=== PATIENT | male | born 1985 | race Caucasian/White ===

== ENCOUNTER 2019-09-17 16:04 | Inpatient (IN) | payer MEDICAID ==
[~2019-09-17] VITALS: Ht 185.4 cm; Wt 200.3 kg
[2019-09-17 16:49] LABS: EOSINOPHILS 3.9 % (0-7); HEMATOCRIT 38.7 % (42.0-54.0); IMMATURE GRANULOCYTES 1.8 % (0-5); LYMPHOCYTES 24.2 % (15-50); MCV 93.5 fL (80.0-100.0); MEAN PLATELET VOLUME 10.4 fL (7.4-10.4); MONOCYTES 5.2 % (2-11); NEUTROPHILS 63.9 % (40-80); PLATELET COUNT 308 10x3/uL (130-400); RBC 4.14 10x6/uL (4.20-6.10); WBC 9.6 10x3/uL (4.8-10.8)
[2019-09-17 17:00] LABS: CALC OSMOLALITY 271 mosm/kg (275-300); CALCIUM 8.1 mg/dL (8.5-10.1); CARBON DIOXIDE 23.4 mmol/L (21.0-32.0); CHLORIDE - SERUM 104 mmol/L (98-107); CREATININE - SERUM 0.7 mg/dL (0.6-1.3); GLUCOSE 92 mg/dL (74-106); POTASSIUM - SERUM 3.5 mmol/L (3.5-5.1); SODIUM 138 mmol/L (136-145); UREA NITROGEN 2 mg/dL (7-18); eGFR NON AFRICAN AMERICAN > 90 mL/min (90-120)
[2019-09-17 17:07] LABS: ALBUMIN 1.9 g/dL (3.4-5.0); ALKALINE PHOSPHATASE 424 U/L (30-120); ALT (SGPT) 106 U/L (10-68); AMYLASE - SERUM 69 U/L (25-115); BILIRUBIN - TOTAL 15.16 mg/dL (0.2-1.3); LIPASE 272 U/L (73-393); PROTEIN - SERUM 5.3 g/dL (6.4-8.2); TROPONIN-I < 0.017 ng/mL (0.000-0.060)
[2019-09-17 17:52] LABS: APTT 29.8 SECONDS (22.8-39.4); INR 1.06 (0.85-1.17); PROTIME 13.7 SECONDS (11.6-15.0)
[2019-09-17 18:24] VITALS: BP 144/89
[2019-09-17 18:53] LABS: BILIRUBIN 3+ (NEGATIVE); GLUCOSE NEGATIVE (NEGATIVE); KETONE NEGATIVE (NEGATIVE); NITRITE NEGATIVE (NEGATIVE); UROBILINOGEN NORMAL (NORMAL)
[2019-09-17 18:55] LABS: BACTERIA MODERATE /hpf (NEGATIVE); RED CELLS - URINE 0-5 /hpf (0-5); WHITE CELLS - URINE 25-50 /hpf (NEGATIVE)
--- NOTE | 2019-09-17 19:50 | NUR ---
PT ARRIVED TO THE FLOOR. ALERT AND ORIENTED. NO SIGNS OF DISTRESS. BREATHING EVEN AND UNLABORED. IV SITE LT AC DRESSING CLEAN DRY AND INTACT. NO SIGNS OF INFECTION OR INFULTRATION. SKIN HAS A YELLOW TINT TO IT. SKIN CLEAN DRY AND INTACT. ABD DISTENDED. LOWER LEGS SWELLING PRESENT. WILL CONTINUE PLAN OF CARE. CALL LIGHT IN REACH. BED LOWERED AND LOCKED. BED RAILS UPX1.
[2019-09-17 20:00] VITALS: BP 126/82
[2019-09-18] VITALS: BP 131/71
[2019-09-18 01:37] VITALS: BMI 55.5
[2019-09-18 04:00] VITALS: BP 126/66
[2019-09-18 05:16] LABS: BASOPHILS 1.3 % (0-2); EOSINOPHILS 3.7 % (0-7); HEMATOCRIT 36.4 % (42.0-54.0); HEMOGLOBIN 11.1 g/dL (13.5-17.5); IMMATURE GRANULOCYTES 1.2 % (0-5); LYMPHOCYTES 19.6 % (15-50); MCH 28.7 pg (26.0-34.0); MCHC 30.5 g/dL (31.0-37.0); MCV 94.1 fL (80.0-100.0); MEAN PLATELET VOLUME 10.7 fL (7.4-10.4); MONOCYTES 6.8 % (2-11); NEUTROPHILS 67.4 % (40-80); PLATELET COUNT 309 10x3/uL (130-400); RBC 3.87 10x6/uL (4.20-6.10); RDW 23.6 % (11.5-14.5); WBC 10.8 10x3/uL (4.8-10.8)
[2019-09-18 05:45] LABS: ALBUMIN 1.8 g/dL (3.4-5.0); ALKALINE PHOSPHATASE 397 U/L (30-120); ALT (SGPT) 97 U/L (10-68); CALC OSMOLALITY 270 mosm/kg (275-300); CALCIUM 7.7 mg/dL (8.5-10.1); CARBON DIOXIDE 23.9 mmol/L (21.0-32.0); CHLORIDE - SERUM 104 mmol/L (98-107); CREATININE - SERUM 0.6 mg/dL (0.6-1.3); GLUCOSE 94 mg/dL (74-106); POTASSIUM - SERUM 3.8 mmol/L (3.5-5.1); PROTEIN - SERUM 4.9 g/dL (6.4-8.2); SODIUM 137 mmol/L (136-145); eGFR NON AFRICAN AMERICAN > 90 mL/min (90-120)
[2019-09-18 05:46] LABS: UREA NITROGEN 3 mg/dL (7-18)
--- NOTE | 2019-09-18 07:11 | HP ---
PATIENT: WALT DOMINIQUE MEDICAL RECORD: [id number] ACCOUNT: [id number] LOCATION:D.[id number] : [birth year] ADMISSION DATE: 09/17/19 PCP: No PCP HISTORY AND PHYSICAL EXAMINATION REASON FOR ADMISSION: Abdominal and leg swelling which is painful. HISTORY OF PRESENT ILLNESS: The patient is a 33-year-old male with no local medical doctor. He has a history of alcoholism and has been hospitalized multiple times at [facility], the last on September 01 for pancreatitis, alcoholic gastritis, and alcohol withdrawal. The patient states that he has had increasing edema in his ankles, feet and legs, which is hard for him to walk. His abdomen began to swell for the last week and so he came to this hospital to try some new physicians. He has had no fever, some vague abdominal pain. He states he used to drink a gallon or so of vodka a day, but was told in August to stop, so he is now drinking beer about 3 course a day. He has had a small amount of blood in the stool over the last 2 weeks. He has had no nausea, vomiting, hematemesis. He was seen by Dr. Rosenthal during his last hospitalization who recommended to take Protonix and Carafate. PAST MEDICAL HISTORY: Alcoholic hepatitis, alcoholic cirrhosis, history of delirium tremens, for which he was on ventilator for a week. Essential hypertension, morbid obesity weighing over 400 pounds, tobacco abuse still smoking, history of nontraumatic rhabdomyolysis, congestive heart failure with diastolic dysfunction by echo in April of this year showed an EF of 50% to 55%. TAVO. PAST SURGICAL HISTORY: [place] teeth have been removed. FAMILY HISTORY: His father in assisted of unknown cause. Mother of breast cancer. SOCIAL HISTORY: He is living in [place] and moved here to follow a woman, which did not work out, he states. He has worked for [employer] most recently. Smokes 1 pack a day for 25 years. Drinks of 2 course of beer a day. Has used pot in the past none since 2016. REVIEW OF SYSTEMS: GENERAL: He has been fatigued for some time. No fever. HEENT: No recent visual change, sinus congestion, sore throat, or hearing difficulty. RESPIRATORY: Mild shortness of breath if he exerts himself, but he does very little. Denies hemoptysis. CARDIAC: No chest pain. He has had marked edema of the lower extremities over the last several weeks making it difficult for him to walk. History of hypertension. No history of heart disease. GASTROINTESTINAL: He has had nausea with no active vomiting, had some vague epigastric abdominal pain. He has had a few stools with some blood on his toilet tissue, but no bernardo hematochezia or melena. GENITOURINARY: Denies dysuria. MUSCULOSKELETAL: Chronic lumbago and hip discomfort. INTEGUMENT: Skin is little more yellow recently. No itching. PSYCHIATRIC: Denies depressed mood, suicidal thoughts, history of seizures. NEUROLOGIC: Denies numbness, history of stroke and seizures. He states he has had DTs in the past. No recent tremors. HISTORY AND PHYSICAL [id number] WALT DOMINIQUE PHYSICAL EXAMINATION: VITAL SIGNS: Weight exceed 400 pounds. His pulse is 115 and regular, temperature is 98.8, respirations 18, blood pressure 136/95. GENERAL: The patient is alert and oriented. Eyes show scleral icterus bilaterally. Vision is intact. Oropharynx unremarkable. NECK: Supple. CHEST: Distant breath sounds without wheeze or rales. HEART: Tachycardic without murmur. ABDOMEN: Morbidly obese, minimally tender in the epigastrium. No rebound. Ascitic wave is noted. A small umbilical hernia noted as well. GENITOURINARY: Shows some scrotal edema. EXTREMITIES: A 4+ bilateral lower extremity edema from the knees to the feet. No skin ulcers are noted. No erythema. NEUROLOGIC: Oriented to person, place, and time. Cranial nerves grossly intact. Gait was not tested. PSYCHIATRIC: Denies depressed mood or suicidal ideology. LABORATORY DATA: White count is 9600 with H and H of 12 and 38.7, and platelet count of 308,000. Potassium 3.5, sodium 138, BUN and creatinine are normal with a normal GFR. Bilirubin was 15.16 at [facility] a month ago it was 9.4. SGOT and SGPT 151/106 respectively. Alkaline phosphatase of 424, albumin low at 1.9. Amylase and lipase are normal. IMAGING: CT scan is pending at this time. ASSESSMENT: 1. Kjsxv-vw-jkqkvir alcoholic cirrhosis. 2. Ascites. 3. Active alcoholism. 4. Active tobacco abuse, hepatic steatosis, morbid obesity, hypertension, TAVO, and umbilical hernia. PLAN: The patient will be admitted with GI consultation for DT prophylaxis. The patient did have a normal PIPIDA scan at [facility] in 08/2019 that showed no dilated ducts. We will monitor for DTs. TRANSINT:[id number] Voice Confirmation ID: [id number] DOCUMENT ID: [id number] EDLANEY FAIRBANKS MD at 0711 CC: [id number] DICTATION DATE: 09/17/191854 CHARGEMASTER SPECIALIST: 09/17/19 223 ADM IN [place] [id number] [place] [address]
--- NOTE | 2019-09-18 07:48 | NUR ---
RECIEVED PT FROM ASSEMBLER MOVEMENT. PT IN BED WITH EYES CLOSED UPON ENTERING, BREATHING UNEVEN AND APPEARS LABORED, REPORTED THAT THIS PATIENT BASELINE WHEN SLEEPING. EASILY AROUSES TO VOICE. ROOM AIR, LEFT AC SL, ELECTROLYTE PROTOCOL, STRICT I&O, DAILY #. ALERT AND ORIENTED X4, UP ADLIB DENIES ANY NEEDS. BED IN LOWEST POSITION, BED RAILS X2, CALL LIGHT WITHIN REACH. WILL CONTINUE TO MONITOR.
[2019-09-18 08:38] VITALS: BP 141/89
--- NOTE | 2019-09-18 08:51 | NUR ---
PT UPRIGHT IN BEDSIDE CHAIR EATING BREAKFAST. ADMINISTERED MORNING MEDICATION AT THIS TIME, NO DIFFICULTIES. DENIES ANY NEEDS. WILL CONTINUE TO MONITOR.
--- NOTE | 2019-09-18 11:05 | NUR ---
ADMINISTERED PRN ATIVAN PER PT REQUEST, TOLERATED WELL. IN BEDSIDE CHAIR. DENIES ANY NEEDS. PROVIDED PT WITH URINE COLLECTION CUP. WILL CONTINUE TO MONITOR.
[2019-09-18 12:41] VITALS: BP 148/91
[2019-09-18 14:13] VITALS: Ht 185.4 cm; Wt 200.3 kg
--- NOTE | 2019-09-18 15:07 | NUR ---
ADMINISTERED MEDICATION. PROVIDED DRINK PER REQUEST. IN BED SIDE. DENIES ANY OTHER NEEDS. WILL CONTINUE TO MONITOR.
[2019-09-18 17:00] VITALS: BP 134/82
--- NOTE | 2019-09-18 19:08 | NUR ---
I have reviewed this patient and I concur with the Shift Assessment completed by the Licensed Practical Nurse today this shift.
--- NOTE | 2019-09-18 19:50 | NUR ---
ADMINISTERED MEDICATION, NO DIFFICULTIES. PT IS UPRIGHT IN BED SIDE CHAIR. DENIES ANY NEEDS. WILL CONTINUE TO MONITOR.
[2019-09-18 20:00] VITALS: BP 148/92
--- NOTE | 2019-09-19 01:17 | NUR ---
PT RESTING IN BED. EYES CLOSED. NO SIGNS OF DISTRESS. BREATHING EVEN AND UNLABORED. IV SITE LT AC DRESSING CLEAN DRY AND INTACT. NO SIGNS OF INFECTION OR INFULTRATION. SKIN YELLOW IN COLOR. ABD DISTENDED. LEGS SWELLING PRESENT. WILL CONTINUE PLAN OF CARE. CALL LIGHT IN REACH. BED LOWERED AND LOCKED.
[2019-09-19 04:00] VITALS: BP 143/87
--- NOTE | 2019-09-19 04:41 | NUR ---
I have reviewed this patient and I concur with the Shift Assessment completed by the Licensed Practical Nurse today this shift.
--- NOTE | 2019-09-19 07:10 | NUR ---
A&O SITTING UP IN CHAIR. NO C/O PAIN. NO S/S OF ACUTE DISTRESS NOTED. IV TO LEFT AC, SL. SITE PATENT WITHOUT REDNESS OR SWELLING. GENERALIZED EDEMA TO BLE. URINE CONCENTRATED, STRICT I&O. ABDOMEN DISTENDED. DENIES ANY NEEDS AT THIS TIME. CALL LIGHT IN REACH. WILL CONTINUE TO MONITOR.
[2019-09-19 07:14] LABS: ALBUMIN 1.9 g/dL (3.4-5.0); ALKALINE PHOSPHATASE 426 U/L (30-120); ALT (SGPT) 96 U/L (10-68); BILIRUBIN - TOTAL 16.46 mg/dL (0.2-1.3); CARBON DIOXIDE 24.2 mmol/L (21.0-32.0); CHLORIDE - SERUM 102 mmol/L (98-107); CREATININE - SERUM 0.7 mg/dL (0.6-1.3); GLUCOSE 107 mg/dL (74-106); POTASSIUM - SERUM 3.5 mmol/L (3.5-5.1); PROTEIN - SERUM 5.4 g/dL (6.4-8.2); SODIUM 136 mmol/L (136-145); eGFR NON AFRICAN AMERICAN > 90 mL/min (90-120)
[2019-09-19 07:26] LABS: CALC OSMOLALITY 268 mosm/kg (275-300); CALCIUM 7.9 mg/dL (8.5-10.1); UREA NITROGEN 5 mg/dL (7-18)
--- NOTE | 2019-09-19 07:46 | NUR ---
UP IN CHAIR,WITHOUT DISTRESS.
[2019-09-19 08:00] VITALS: BP 154/79
[2019-09-19 08:13] LABS: HEPATITIS C ANTIBODY 0.3 S/CO RAT (0.0-0.9)
[2019-09-19 09:59] LABS: BASOPHILS 1.5 % (0-2); HEMATOCRIT 37.5 % (42.0-54.0); HEMOGLOBIN 11.5 g/dL (13.5-17.5); IMMATURE GRANULOCYTES 2.4 % (0-5); LYMPHOCYTES 19.2 % (15-50); MCH 28.8 pg (26.0-34.0); MCHC 30.7 g/dL (31.0-37.0); MEAN PLATELET VOLUME 10.5 fL (7.4-10.4); MONOCYTES 4.9 % (2-11); PLATELET COUNT 279 10x3/uL (130-400); RBC 3.99 10x6/uL (4.20-6.10); RDW 23.5 % (11.5-14.5); WBC 9.3 10x3/uL (4.8-10.8)
[2019-09-19 12:00] VITALS: BP 145/85
--- NOTE | 2019-09-19 12:33 | MORECARE ---
CASE MANAGEMENT DISCHARGE SUMMARY PATIENT: WALT DOMINIQUE UNIT: [id number] ADM DATE: 09/17/19 AGE: 33 : 85 SEX: M ROOM/BED: D.2235 AUTHOR: CURT MALIK PHYSICIAN: REFERRING PHYSICIAN: DELANEY FAIRBANKS MD DATE OF SERVICE: 09/19/19 Discharge Plan Patient Name: WALT DOMINIQUE [facility] [facility] 1985 Planned Disposition: Inpatient Rehab Anticipated Discharge Date: Discharge Date: Expected LOS: Initial Reviewer: [email or web address] Initial Review Date: 09/19/2019 Generated: 09/19/19 1:32 pm Patient Name: WALT DOMINIQUE Page [id number] at 1233 All edits/amendments must be made on the electronic document DICTATION DATE: 09/19/19 1233 ACCOUNT DEVELOPMENT ASSOCIATE: DENY 09/19/19 1233 RPT#: [id number] DC DATE: STATUS: ADM IN [facility] [address] [place] [address] END OF REPORT
--- NOTE | 2019-09-19 12:43 | MORECARE ---
CASE MANAGEMENT DISCHARGE SUMMARY PATIENT: WALT DOMINIQUE UNIT: [id number] ADM DATE: 09/17/19 AGE: 33 : 85 SEX: M ROOM/BED: D.2235 AUTHOR: CURT MALIK PHYSICIAN: REFERRING PHYSICIAN: DELANEY FAIRBANKS MD DATE OF SERVICE: 09/19/19 Discharge Plan Patient Name: WALT DOMINIQUE Facility: [facility]:[place] : 1985 Planned Disposition: Inpatient Rehab Anticipated Discharge Date: Discharge Date: Expected LOS: Initial Reviewer: [email or web address] Initial Review Date: 09/19/2019 Generated: 09/19/19 1:42 pm Comments DCP- Discharge Planning Updated by [email or web address]: Hellen Molina on 09/19/19 11:[address] Patient Name: WALT DOMINIQUE Admission Status: ER Accout number: [id number] Admission Date: 09-17-2019 : 1985 Admission Diagnosis: Attending: DELANEY FAIRBANKS Current LOS: 2 Anticipated DC Date: Planned Disposition: Inpatient Rehab Primary Insurance: [place] PR[employer]IONS YARITZA Discharge Planning Comments: CM met with patient at bedside after explaining CM role and obtaining verbal consent. CM discussed availability / needs of home health, REHAB and medical equipment. HE WOULD LIKE TO GO TO [facility] AT [facility], DEENA SIGNED AND I AM FAXING REFERRAL SO THEY CAN GET STARTED ON THE INSURANCE AUTH. I WILL FOLLOW AND ASSIST NEEDED. Human Resources Team Member: Hellen Molina External Providers External Provider: [facility] Next Contact Date: Service Request Date: Service Type: Resolution: Reviewer: Comments: Coverage Notice Reviewer: [id number] - Hellen Molina Notice Issued Date-Time: 09/19/2019 12:35 Notice Type: Patient Choice Letter Notice Delivered To: Relationship to Patient: Gunner'S Mate Name: Delivery Method: HAND - Hand Delivered Peggy Days: Prior Verbal Notification: Recipient Understood Notice: Yes Recipient Signature: Yes Med Rec Note Co-signed by Attending: Coverage Notice Comment: [facility] Last DP export: 09/19/19 11:33 am Patient Name: WALT DOMINIQUE Page 14201 at 1243 All edits/amendments must be made on the electronic document DICTATION DATE: 09/19/191241 PROJECT MANAGER INTERIOR DESIGN: DENY 09/19/19 1242 RPT#: [id number] DC DATE: STATUS: ADM IN [facility] [address] [place] [address] END OF REPORT
--- NOTE | 2019-09-19 15:07 | NUR ---
OT NOTE: PT COMPLETED BUE AROM EXS. PT COMPLETED FACE HYGIENE WITH SETUP. [phone] THANK YOU,JASON RIZO
[2019-09-19 16:00] VITALS: BP 134/83
--- NOTE | 2019-09-19 18:06 | NUR ---
ALERT AND ORIENTED, SITTING UP IN CHAIR. NO C/O PAIN. NO S/S OF ACUTE DISTRESS NOTED. DENIES ANY NEEDS AT THIS TIME. CALL LIGHT IN REACH. WILL CONTINUE TO MONITOR.
[2019-09-19 20:00] VITALS: BP 149/91
--- NOTE | 2019-09-19 20:00 | NUR ---
PATIENT SITTING UP IN CHAIR. NO S/S OF ACUTE DISTRESS. NO C/O AT THIS TIME. PATIENT HAS LEFT AC, BANANA BAG @ 125 ML/HR. IV IS PATENT WITHOUT REDNESS, SWELLING, OR TENDERNESS. PATIENT HAS YELLOW SCLERA, AND IS JUANDICED ALL OVER. PATIENT HAS GENERALIZED EDEMA THAT IS ESPECIALLY BAD ON HIS FEET. PATIENT'S URNINE IS ORANGE AND CONCENTRATED, IT STAINS THE URINALS. CALL LIGHT WITHIN REACH. WILL CONTINUE TO MONITOR.
[2019-09-20 04:00] VITALS: BP 136/77
[2019-09-20 06:05] LABS: ALBUMIN 1.7 g/dL (3.4-5.0); ALKALINE PHOSPHATASE 388 U/L (30-120); ALT (SGPT) 80 U/L (10-68); BILIRUBIN - TOTAL 15.91 mg/dL (0.2-1.3); CALC OSMOLALITY 272 mosm/kg (275-300); CALCIUM 8.3 mg/dL (8.5-10.1); CARBON DIOXIDE 26.8 mmol/L (21.0-32.0); CHLORIDE - SERUM 102 mmol/L (98-107); CREATININE - SERUM 0.8 mg/dL (0.6-1.3); GLUCOSE 96 mg/dL (74-106); PROTEIN - SERUM 5.6 g/dL (6.4-8.2); SODIUM 138 mmol/L (136-145); UREA NITROGEN 5 mg/dL (7-18); eGFR NON AFRICAN AMERICAN > 90 mL/min (90-120)
[2019-09-20 06:06] LABS: INR 0.99 (0.85-1.17)
--- NOTE | 2019-09-20 07:33 | NUR ---
PT O N CL, REQUESTED ATIVAN, WILL ADMINISTER THIS MORNING WITH PT MORNING MEDS, CONTINUE WITH PLAN OF CARE
[2019-09-20 08:00] VITALS: BP 142/84
[2019-09-20 12:00] VITALS: BP 145/84
--- NOTE | 2019-09-20 13:04 | NUR ---
I have reviewed this patient and I concur with the Shift Assessment completed by the Licensed Practical Nurse today this shift.
--- NOTE | 2019-09-20 13:13 | MORECARE ---
CASE MANAGEMENT DISCHARGE SUMMARY PATIENT: WALT DOMINIQUE UNIT: [id number] ADM DATE: 09/17/19 AGE: 33 : 85 SEX: M ROOM/BED: D.2235 AUTHOR: CURT MALIK PHYSICIAN: REFERRING PHYSICIAN: DELANEY FAIRBANKS MD DATE OF SERVICE: 09/20/19 Discharge Plan Patient Name: WALT DOMINIQUE Facility: [facility]:[place] : 1985 Planned Disposition: Inpatient Rehab Anticipated Discharge Date: Discharge Date: Expected LOS: Initial Reviewer: [id number] Initial Review Date: 09/19/2019 Generated: 09/20/19 2:12 pm Comments DCP- Discharge Planning Updated by [email or web address]: Selena Vaughn on 09/20/19 12:[address] NIKKI FROM [facility] STATED THAT THE [facility] DOES NOT HAVE AN APPROVED DX FOR HIS INSURANCE DCP- Discharge Planning Updated by [email or web address]: Hellen Molina on 09/19/19 11:[address] Patient Name: WALT DOMINIQUE Admission Status: ER Accout number: [id number] Admission Date: 09-17-2019 : 1985 Admission Diagnosis: Attending: DELANEY FAIRBANKS Current LOS: 2 Anticipated DC Date: Planned Disposition: Inpatient Rehab Primary Insurance: [place] PR[employer]IONS YARIT[place] Discharge Planning Comments: CM met with patient at bedside after explaining CM role and obtaining verbal consent. CM discussed availability / needs of home health, REHAB and medical equipment. HE WOULD LIKE TO GO TO [facility] AT [facility], DEENA SIGNED AND I AM FAXING REFERRAL SO THEY CAN GET STARTED ON THE INSURANCE AUTH. I WILL FOLLOW AND ASSIST NEEDED. Local [place] Truck Driver: Hellen Molina Coverage Notice Reviewer: [id number] - Hellen Molina Notice Issued Date-Time: 09/19/2019 12:35 Notice Type: Patient Choice Letter Notice Delivered To: Relationship to Patient: Er Rn Name: Delivery Method: HAND - Hand Delivered Peggy Days: Prior Verbal Notification: Recipient Understood Notice: Yes Recipient Signature: Yes Med Rec Note Co-signed by Attending: Coverage Notice Comment: [facility] Last DP export: 09/19/19 11:43 am Patient Name: WALT DOMINIQUE Page 02644 at 1313 All edits/amendments must be made on the electronic document DICTATION DATE: 09/20/191312 MFG ASSOC: DENY 09/20/191312 RPT#: [id number] DC DATE: STATUS: ADM IN [facility] [address] [place] [address] END OF REPORT
--- NOTE | 2019-09-20 14:48 | NUR ---
OT NOTE: PT COMPLETED ADL MOB WITH NO ASSISTIVE DEVICE WITH SBA. PT COMPLETED SITTING BALANCE WITH MOD I. PT COMPLETED HYGIENE TASKS AT SINK LEVEL WHILE STANDING WITH SBA. [phone] THANK YOU,JASON RIZO
[2019-09-20 16:00] VITALS: BP 143/84
--- NOTE | 2019-09-20 17:23 | MORECARE ---
CASE MANAGEMENT DISCHARGE SUMMARY PATIENT: WALT DOMINIQUE UNIT: [id number] ADM DATE: 09/17/19 AGE: 33 : 85 SEX: M ROOM/BED: D.2235 AUTHOR: HELENADOC PHYSICIAN: REFERRING PHYSICIAN: DELANEY FAIRBANKS MD DATE OF SERVICE: 09/20/19 Discharge Plan Patient Name: WALT DOMINIQUE [facility] [facility] 1985 Planned Disposition: Inpatient Rehab Anticipated Discharge Date: Discharge Date: Expected LOS: Initial Reviewer: [email or web address] Initial Review Date: 09/19/2019 Generated: 09/20/19 6:23 pm Comments DCP- Discharge Planning Updated by [email or web address]: Selena Vaughn on 09/20/19 4:[address] SPOKE WITH PATIENT ABOUT NOT GETTING ACCEPTED TO INPATIENT REHAB, HE WOULD LIKE TO TRY TO GET INTO A PHYSICAL THERAPY REHAB ( SKILLED) HE DID MENTION THAT HE HAS AN AUNT SAVANNAH MONTGOMERY & UNCLE JING PEPPER WHO LIVE IN [place] [phone] HE HAS NOT SPOKEN WITH THEM IN 10 YEARS & DID NOT WANT ME TO CALL THEM. HE WOULD LIKE TO WAIT AND SEE IF WE CAN GET HIM INTO A SKILLED HE WOULD LIKE TO STAY LOCL IF POSSIBLE DCP- Discharge Planning Updated by [email or web address]: Selena Vaughn on 09/20/19 12:[address] NIKKI FROM [facility] RE[facility] STATED THAT THE [facility] DOES NOT HAVE AN APPROVED DX FOR HIS INSURANCE DCP- Discharge Planning Updated by [id number]: Hellen Tracy on 09/19/19 11:[address] Patient Name: WALT DOMINIQUE Admission Status: ER Accout number: [id number] Admission Date: 09-17-2019 : 1985 Admission Diagnosis: Attending: DELANEY FAIRBANKS Current LOS: 2 Anticipated DC Date: Planned Disposition: Inpatient Rehab Primary Insurance: [place] [employer] [place]AR[place] Discharge Planning Comments: CM met with patient at bedside after explaining CM role and obtaining verbal consent. CM discussed availability / needs of home health, REHAB and medical equipment. HE WOULD LIKE TO GO TO [facility] AT [facility], DEENA SIGNED AND I AM FAXING REFERRAL SO THEY CAN GET STARTED ON THE INSURANCE AUTH. I WILL FOLLOW AND ASSIST NEEDED. Echocardiography Tech: Hellen Molina Coverage Notice Reviewer: [id number] - Hellen Molina Notice Issued Date-Time: 09/19/2019 12:35 Notice Type: Patient Choice Letter Notice Delivered To: Relationship to Patient: Corporate Technical Recruiter Name: Delivery Method: HAND - Hand Delivered Peggy Days: Prior Verbal Notification: Recipient Understood Notice: Yes Recipient Signature: Yes Med Rec Note Co-signed by Attending: Coverage Notice Comment: [facility] Last DP export: 09/20/19 12:13 p Patient Name: WALT DOMINIQUE Page 44375 at 1723 All edits/amendments must be made on the electronic document DICTATION DATE: 09/20/191722 TEA BLENDER: DENY 09/20/191722 RPT#: [id number] DC DATE: STATUS: ADM IN [facility] [address] [place] [address] END OF REPORT
[2019-09-20 20:00] VITALS: BP 120/65
--- NOTE | 2019-09-20 20:00 | NUR ---
PATIENT SITTING IN CHAIR WATCHING TV. NO S/S OF ACUTE DISTRESS. NO C/O AT THIS TIME. PATIENT HAS IV IN LEFT AC, BANANA BAG @ 125 ML/HR THEN SALINE LOC. IV IS PATENT WITHOUT REDNESS, SWELLING, OR TENDERNESS. PATIENT IS JAUNDICED AND HAS YELLOW SCLERA. PATEINT HAS BLE EDEMA. PATIENT IS UP AD CINDY. CALL LIGHT WITHIN REACH. WILL CONTINUE TO MONITOR.
--- NOTE | 2019-09-21 02:13 | NUR ---
I have reviewed this patient and I concur with the Shift Assessment completed by the Licensed Practical Nurse today this shift.
[2019-09-21 06:59] LABS: CALCIUM 8.5 mg/dL (8.5-10.1); CARBON DIOXIDE 29.6 mmol/L (21.0-32.0); CHLORIDE - SERUM 103 mmol/L (98-107); CREATININE - SERUM 0.8 mg/dL (0.6-1.3); GLUCOSE 94 mg/dL (74-106); SODIUM 137 mmol/L (136-145); eGFR NON AFRICAN AMERICAN > 90 mL/min (90-120)
[2019-09-21 07:04] LABS: CALC OSMOLALITY 271 mosm/kg (275-300); POTASSIUM - SERUM 3.6 mmol/L (3.5-5.1); UREA NITROGEN 8 mg/dL (7-18)
[2019-09-21 08:51] VITALS: BP 120/72
--- NOTE | 2019-09-21 10:03 | NUR ---
PAITENT ALERT AND ORIENTED. SITTING IN CHAIR. RESPIRATIONS EVEN NON LABORED. NO SIGNS OF DISTRESS NOTED. SKIN IS JAUNDICE, SLERA YELLOW. URINE COFFEE COLORED. EDEMA ON BOTH LOWER EXTREMITIES. RIGHT ARM SALINE LOCK. UP AD CINDY. DENIES FURTHER NEEDS. SIDE RAILS UP. CALL LIGHT IN REACH. WILL CONTINUE TO MONITOR FOR SAFETY.
[2019-09-21 14:02] VITALS: BP 133/76
--- NOTE | 2019-09-21 17:24 | NUR ---
PATIENT ALERT AND ORIENTED. SITTING IN CHAIR WATCHING TV. RESPIRATIONS EVEN NON LABORED. NO SIGNS OF DISTRESS NOTED. STATES STOOL "STILL SNOW COLORED." DENIES FURTHER NEEDS. SIDE RAILS UP. CALL LIGHT IN REACH. WILL CONTINUE TO MONITOR FOR SAFETY.
[2019-09-21 18:21] VITALS: BP 171/88
--- NOTE | 2019-09-21 18:40 | NUR ---
PATIENT ALERT AND ORIENTED. SITTING IN CHAIR RESTING QUIETLY. RESPIRATIONS EVEN NONLABORED. NO SIGNS OF DISTRESS NOTED. DENIES FURTHER NEEDS. SIDE RAILS UP. CALL LIGHT IN REACH. WILL CONTINUE TO MONITOR FOR SAFETY.
[2019-09-21 20:00] VITALS: BP 147/79
--- NOTE | 2019-09-21 20:00 | NUR ---
PATIENT WATCHING TV IN CHAIR. NO S/S OF ACUTE DISTRESS. NO C/O AT THIS TIME. PATIENT HAS LEFT AC IV, BANANA BAG @ 125 ML/HR. IV IS PATENT WITHOUT REDNESS, SWELLING, OR TENDERNESS. PATIENT HAS YELLOW SCLERA AND IS JAUNDICED. PATIENT'S STOMACH IS DISTENDED AND TENDER. PATIENT HAS BLE EDEMA. PATIENT HAS HAD SNOW STOOLS. PATIENT IS UP ADLIB. CALL LIGHT WITHIN REACH. WILL CONTINUE TO MONITOR.
--- NOTE | 2019-09-22 03:00 | NUR ---
I have reviewed this patient and I concur with the Shift Assessment completed by the Licensed Practical Nurse today this shift.
[2019-09-22 04:00] VITALS: BP 104/51
[2019-09-22 07:47] LABS: HEMATOCRIT 37.8 % (42.0-54.0); HEMOGLOBIN 11.6 g/dL (13.5-17.5); LYMPHOCYTES 19.9 % (15-50); MCH 29.5 pg (26.0-34.0); MCHC 30.7 g/dL (31.0-37.0); MCV 96.2 fL (80.0-100.0); MEAN PLATELET VOLUME 10.7 fL (7.4-10.4); NEUTROPHILS 69.8 % (40-80); RBC 3.93 10x6/uL (4.20-6.10); RDW 23.7 % (11.5-14.5); WBC 11.1 10x3/uL (4.8-10.8)
[2019-09-22 07:48] LABS: PLATELET COUNT 214 10x3/uL (130-400)
[2019-09-22 08:08] LABS: ALBUMIN 1.7 g/dL (3.4-5.0); ALKALINE PHOSPHATASE 350 U/L (30-120); ALT (SGPT) 73 U/L (10-68); BILIRUBIN - TOTAL 17.38 mg/dL (0.2-1.3); CALC OSMOLALITY 268 mosm/kg (275-300); CALCIUM 8.3 mg/dL (8.5-10.1); CARBON DIOXIDE 27.2 mmol/L (21.0-32.0); CHLORIDE - SERUM 100 mmol/L (98-107); CREATININE - SERUM 0.8 mg/dL (0.6-1.3); GLUCOSE 93 mg/dL (74-106); POTASSIUM - SERUM 3.2 mmol/L (3.5-5.1); PROTEIN - SERUM 5.6 g/dL (6.4-8.2); SODIUM 135 mmol/L (136-145); UREA NITROGEN 9 mg/dL (7-18); eGFR NON AFRICAN AMERICAN > 90 mL/min (90-120)
[2019-09-22 09:24] VITALS: BP 138/88
--- NOTE | 2019-09-22 11:11 | NUR ---
PATIENT ALERT AND ORIENTED. SITTING IN CHAIR RESTING QUIETLY. WATCHING TV. RESPIRATIONS EVEN NONLABORED. NO SIGNS OF DISTRESS NOTED. JAUNDICE. YELLOW SCLERA. URINE IS DARK ORANGE FOUL ODOR. EDEMA ON BOTH LOWER EXTREMETIES. ON ROOM AIR. UP ADLIB. AM MEDS TOLERATED WELL. DENIES FUTHER NEEDS. SIDE RAILS UP. CALL LIGHT IN REACH. WILL CONTINUE TO MONITOR FOR SAFETY.
[2019-09-22 12:54] VITALS: BP 160/86
--- NOTE | 2019-09-22 16:31 | NUR ---
I have reviewed this patient and I concur with the Shift Assessment completed by the Licensed Practical Nurse today this shift.
[2019-09-22 17:53] VITALS: BP 146/86
--- NOTE | 2019-09-22 18:21 | NUR ---
PATIENT ALERT AND ORIENTED. SITTING IN CHAIR WATCHING TV. RESPIRATIONS EVEN NON LABORED. NO SIGNS OF DISTRESS NOTED. DENIES FURTHER NEEDS. SIDE RAILS UP. CALL LIGHT IN REACH. WILL CONTINUE TO MONITOR FOR SAFETY.
[2019-09-22 20:00] VITALS: BP 128/77
--- NOTE | 2019-09-22 20:00 | NUR ---
ALERT SITTING UP IN CHAIR, SEE SHIFT ASSESSEMNT, CALL LIGHT IN REACH DENIES NEEDS AT THIS TIME
[2019-09-23 04:11] VITALS: BP 129/71
[2019-09-23 09:08] VITALS: BP 135/85
--- NOTE | 2019-09-23 09:33 | NUR ---
PT SITTING UP IN CHAIR AT BEDSIDE, ADMINISTERED PRN MEDICATIONS WITH MORNING MEDS, PT DAILY WEIGHT ON BEDSCALE IS 448.6. ELEVATED PT LEGS IN CHAIR NO OTHER NEEDS AT THIS TIME. CONTINUE WITH PLAN OF CARE
--- NOTE | 2019-09-23 11:03 | MORECARE ---
CASE MANAGEMENT DISCHARGE SUMMARY PATIENT: WALT DOMINIQUE UNIT: [id number] ADM DATE: 09/17/19 AGE: 33 : 85 SEX: M ROOM/BED: D.2235 AUTHOR: HELENADOC PHYSICIAN: REFERRING PHYSICIAN: DELANEY FAIRBANKS MD DATE OF SERVICE: 09/23/19 Discharge Plan Patient Name: WALT DOMINIQUE [facility] [facility] 1985 Planned Disposition: Inpatient Rehab Anticipated Discharge Date: Discharge Date: Expected LOS: Initial Reviewer: [email or web address] Initial Review Date: 09/19/2019 Generated: 09/23/19 12:03 pm Comments DCP- Discharge Planning Updated by [id number]: Selena Vaughn on 09/20/19 4:[address] SPOKE WITH PATIENT ABOUT NOT GETTING ACCEPTED TO INPATIENT REHAB, HE WOULD LIKE TO TRY TO GET INTO A PHYSICAL THERAPY REHAB ( SKILLED) HE DID MENTION THAT HE HAS AN AUNT SAVANNAH MONTGOMERY & UNCLE JING PEPPER WHO LIVE IN [facility] [phone] HE HAS NOT SPOKEN WITH THEM IN 10 YEARS & DID NOT WANT ME TO CALL THEM. HE WOULD LIKE TO WAIT AND SEE IF WE CAN GET HIM INTO A SKILLED HE WOULD LIKE TO STAY LOCL IF POSSIBLE DCP- Discharge Planning Updated by [email or web address]: Selena Vaughn on 09/20/19 12:[address] NIKKI FROM [facility] RE[facility] STATED THAT THE [facility] DOES NOT HAVE AN APPROVED DX FOR HIS INSURANCE DCP- Discharge Planning Updated by [email or web address]: Hellen Tracy on 09/19/19 11:[address] Patient Name: WALT DOMINIQUE Admission Status: ER Accout number: [id number] Admission Date: 09-17-2019 : 1985 Admission Diagnosis: Attending: DELANEY FAIRBANKS Current LOS: 2 Anticipated DC Date: Planned Disposition: Inpatient Rehab Primary Insurance: [place] [employer]IONS YARITZA Discharge Planning Comments: CM met with patient at bedside after explaining CM role and obtaining verbal consent. CM discussed availability / needs of home health, REHAB and medical equipment. HE WOULD LIKE TO GO TO [facility] AT [facility], DEENA SIGNED AND I AM FAXING REFERRAL SO THEY CAN GET STARTED ON THE INSURANCE AUTH. I WILL FOLLOW AND ASSIST NEEDED. Career Placement Services Counselor: Hellen Molina Coverage Notice Reviewer: [id number] - Hellen Molina Notice Issued Date-Time: 09/19/2019 12:35 Notice Type: Patient Choice Letter Notice Delivered To: Relationship to Patient: Physician Assistant Name: Delivery Method: HAND - Hand Delivered Peggy Days: Prior Verbal Notification: Recipient Understood Notice: Yes Recipient Signature: Yes Med Rec Note Co-signed by Attending: Coverage Notice Comment: [facility] Last DP export: 09/20/19 4:23 p Patient Name: WALT DOMINIQUE Page [id number] at 1103 All edits/amendments must be made on the electronic document DICTATION DATE: 09/23/191102 MEDIA ASSOCIATE: DENY 09/23/19 1103 RPT#: [id number] DC DATE: STATUS: ADM IN [facility] [address] [place] [address] END OF REPORT
--- NOTE | 2019-09-23 11:33 | NUR ---
I have reviewed this patient and I concur with the Shift Assessment completed by the Licensed Practical Nurse today this shift.
--- NOTE | 2019-09-23 12:16 | MORECARE ---
CASE MANAGEMENT DISCHARGE SUMMARY PATIENT: WALT DOMINIQUE UNIT: [id number] ADM DATE: 09/17/19 AGE: 33 : 85 SEX: M ROOM/BED: D.2235 AUTHOR: HELENADOC PHYSICIAN: REFERRING PHYSICIAN: DELANEY FAIRBANKS MD DATE OF SERVICE: 09/23/19 Discharge Plan Patient Name: WALT DOMINIQUE [facility] [facility] 1985 Planned Disposition: Inpatient Rehab Anticipated Discharge Date: Discharge Date: Expected LOS: Initial Reviewer: [id number] Initial Review Date: 09/19/2019 Generated: 09/23/19 1:15 pm Comments DCP- Discharge Planning Updated by [id number]: Selena Vaughn on 09/20/19 4:[address] SPOKE WITH PATIENT ABOUT NOT GETTING ACCEPTED TO INPATIENT REHAB, HE WOULD LIKE TO TRY TO GET INTO A PHYSICAL THERAPY REHAB ( SKILLED) HE DID MENTION THAT HE HAS AN AUNT SAVANNAH MONTGOMERY & UNCLE JING PEPPER WHO LIVE IN [facility] [phone] HE HAS NOT SPOKEN WITH THEM IN 10 YEARS & DID NOT WANT ME TO CALL THEM. HE WOULD LIKE TO WAIT AND SEE IF WE CAN GET HIM INTO A SKILLED HE WOULD LIKE TO STAY LOCL IF POSSIBLE DCP- Discharge Planning Updated by [id number]: Selena Vaughn on 09/20/19 12:[address] NIKKI FROM [facility] STATED THAT THE [facility] DOES NOT HAVE AN APPROVED DX FOR HIS INSURANCE DCP- Discharge Planning Updated by [id number]: Hellen Tracy on 09/19/19 11:[address] Patient Name: WALT DOMINIQUE Admission Status: ER Accout number: [id number] Admission Date: 09-17-2019 : 1985 Admission Diagnosis: Attending: DELANEY FAIRBANKS Current LOS: 2 Anticipated DC Date: Planned Disposition: Inpatient Rehab Primary Insurance: [place] PRIVATE OPTIONS [place] Discharge Planning Comments: CM met with patient at bedside after explaining CM role and obtaining verbal consent. CM discussed availability / needs of home health, REHAB and medical equipment. HE WOULD LIKE TO GO TO [facility] AT [facility], D[facility] SIGNED AND I AM FAXING REFERRAL SO THEY CAN GET STARTED ON THE INSURANCE AUTH. I WILL FOLLOW AND ASSIST NEEDED. Thai Masseur: Hellen Molina External Providers External Provider: OTHER-OTHER Next Contact Date: Service Request Date: Service Type: Resolution: Reviewer: Comments: Coverage Notice Reviewer: [id number] - Hellen Molina Notice Issued Date-Time: 09/19/2019 12:35 Notice Type: Patient Choice Letter Notice Delivered To: Relationship to Patient: Roll Handler Name: Delivery Method: HAND - Hand Delivered Peggy Days: Prior Verbal Notification: Recipient Understood Notice: Yes Recipient Signature: Yes Med Rec Note Co-signed by Attending: Coverage Notice Comment: [facility] Last DP export: 09/23/19 10:03 a Patient Name: WALT DOMINIQUE Page 94519 at 1216 All edits/amendments must be made on the electronic document DICTATION DATE: 09/23/19 1215 CODING QUALITY ANALYST: DENY 09/23/19 1215 RPT#: [id number] DC DATE: STATUS: ADM IN [facility] [address] [place] [address] END OF REPORT
--- NOTE | 2019-09-23 12:23 | MORECARE ---
CASE MANAGEMENT DISCHARGE SUMMARY PATIENT: WALT DOMINIQUE UNIT: [id number] ADM DATE: 09/17/19 AGE: 33 : 85 SEX: M ROOM/BED: D.2235 AUTHOR: CURT MALIK PHYSICIAN: REFERRING PHYSICIAN: DELANEY FAIRBANKS MD DATE OF SERVICE: 09/23/19 Discharge Plan Patient Name: WALT DOMINIQUE Facility: [facility]:[place] : 1985 Planned Disposition: Inpatient Rehab Anticipated Discharge Date: Discharge Date: Expected LOS: Initial Reviewer: [id number] Initial Review Date: 09/19/2019 Generated: 09/23/19 1:22 pm Comments DCP- Discharge Planning Updated by [email or web address]: Hellen Molina on 09/23/19 11:[address] Patient Name: WALT DOMINIQUE Admission Status: ER Accout number: [id number] Admission Date: 09-17-2019 : 1985 Admission Diagnosis:UNSPECIFIED ABDOMINAL PAIN Attending: DELANEY FAIRBANKS Current LOS: 6 Anticipated DC Date: Planned Disposition: Inpatient Rehab Primary Insurance: [place] PRIVATE [employer]IONS [place] Discharge Planning Comments: FAXED REFERRAL FOR SNF TO [place]. WAITING CALL BACK. Sql Database Administrator: Hellen Molina DCP- Discharge Planning Updated by [id number]: Selena Vaughn on 09/20/19 4:[address] SPOKE WITH PATIENT ABOUT NOT GETTING ACCEPTED TO INPATIENT REHAB, HE WOULD LIKE TO TRY TO GET INTO A PHYSICAL THERAPY REHAB ( SKILLED) HE DID MENTION THAT HE HAS AN AUNT SAVANNAH MONTGOMERY & UNCLE JING PEPPER WHO LIVE IN [facility] [phone] HE HAS NOT SPOKEN WITH THEM IN 10 YEARS & DID NOT WANT ME TO CALL THEM. HE WOULD LIKE TO WAIT AND SEE IF WE CAN GET HIM INTO A SKILLED HE WOULD LIKE TO STAY LOCL IF POSSIBLE DCP- Discharge Planning Updated by [id number]: Selena Vaughn on 09/20/19 12:[address] NIKKI FROM [facility] STATED THAT THE [facility] DOES NOT HAVE AN APPROVED DX FOR HIS INSURANCE DCP- Discharge Planning Updated by [id number]: Hellen Molina on 09/19/19 11:[address] Patient Name: WALT DOMINIQUE Admission Status: ER Accout number: [id number] Admission Date: 09-17-2019 : 1985 Admission Diagnosis: Attending: DELANEY FAIRBANKS Current LOS: 2 Anticipated DC Date: Planned Disposition: Inpatient Rehab Primary Insurance: [place] PRIVATE OPTIONS [facility] Discharge Planning Comments: CM met with patient at bedside after explaining CM role and obtaining verbal consent. CM discussed availability / needs of home health, REHAB and medical equipment. HE WOULD LIKE TO GO TO [facility] AT [facility], D[facility] SIGNED AND I AM FAXING REFERRAL SO THEY CAN GET STARTED ON THE INSURANCE AUTH. I WILL FOLLOW AND ASSIST NEEDED. Sql Database Administrator: Hellen Molina Coverage Notice Reviewer: [id number] - Hellen Molina Notice Issued Date-Time: 09/19/2019 12:35 Notice Type: Patient Choice Letter Notice Delivered To: Relationship to Patient: Statistician Applied Name: Delivery Method: HAND - Hand Delivered Peggy Days: Prior Verbal Notification: Recipient Understood Notice: Yes Recipient Signature: Yes Med Rec Note Co-signed by Attending: Coverage Notice Comment: [facility] Last DP export: 09/23/19 11:16 a Patient Name: WALT DOMINIQUE Page 87922 at 1223 All edits/amendments must be made on the electronic document DICTATION DATE: 09/23/19 1223 PRODUCT DEVELOPMENT ENGINEER: DENY 09/23/19 1223 RPT#: [id number] DC DATE: STATUS: ADM IN [facility] [address] [place] [address] END OF REPORT
[2019-09-23 13:06] VITALS: BP 155/89
--- NOTE | 2019-09-23 15:38 | NUR ---
Nutrition Follow-up: Diet: Cardiac PO intake: ~88% average x last 6 meals Last BM: 09/22/19. WT: 448.6# (09/23/19); 456.3# (09/21/19) Meds noted: micro-K, lasix. Labs noted: K 3.6(WNL) Recommend continue cardiac diet. RD following.
[2019-09-23 18:04] VITALS: BP 148/88
[2019-09-23 20:00] VITALS: BP 142/76
[2019-09-24 04:00] VITALS: BP 117/56
--- NOTE | 2019-09-24 07:31 | NUR ---
PT ALERT AND ORIENTED X4 UPON ENTERING. ROOM AIR, NO IV ACCESS, NONE NEEDED. UP ADLIB, DAILY #- 455.2LB TODAY. WAITING FOR PLACEMENT. RESTING COMFORTABLY IN BED, DENIES ANY NEEDS. WILL CONTINUE TO MONITOR.
--- NOTE | 2019-09-24 08:08 | NUR ---
PT IN BEDSIDE CHAIR. ADMINISTERED MORNING MEDICATION, NO DIFFICULTIES. DENIES ANY NEEDS AT THIS TIME. WILL CONTINUE TO MONITOR.
[2019-09-24 09:38] VITALS: BP 136/82
--- NOTE | 2019-09-24 10:14 | MORECARE ---
CASE MANAGEMENT DISCHARGE SUMMARY PATIENT: WALT DOMINIQUE UNIT: [id number] ADM DATE: 09/17/19 AGE: 33 : 85 SEX: M ROOM/BED: D.2235 AUTHOR: CURT MALIK PHYSICIAN: REFERRING PHYSICIAN: DELANEY FAIRBANKS MD DATE OF SERVICE: 09/24/19 Discharge Plan Patient Name: WALT DOMINIQUE Facility: [facility]:[place] : 1985 Planned Disposition: Inpatient Rehab Anticipated Discharge Date: Discharge Date: Expected LOS: Initial Reviewer: [id number] Initial Review Date: 09/19/2019 Generated: 09/24/19 11:13 am Comments DCP- Discharge Planning Updated by [id number]: Hellen Molina on 09/23/19 11:[address] Patient Name: WALT DOMINIUQE Admission Status: ER Accout number: [id number] Admission Date: 09-17-2019 : 1985 Admission Diagnosis:UNSPECIFIED ABDOMINAL PAIN Attending: DELANEY FAIRBANKS Current LOS: 6 Anticipated DC Date: Planned Disposition: Inpatient Rehab Primary Insurance: [place] PRIVATE OPTIONS [place] Discharge Planning Comments: FAXED REFERRAL FOR SNF TO [place]. WAITING CALL BACK. Body Die Maker: Hellen Molina DCP- Discharge Planning Updated by [id number]: Selena Vaughn on 09/20/19 4:[address] SPOKE WITH PATIENT ABOUT NOT GETTING ACCEPTED TO INPATIENT REHAB, HE WOULD LIKE TO TRY TO GET INTO A PHYSICAL THERAPY REHAB ( SKILLED) HE DID MENTION THAT HE HAS AN AUNT SAVANNAH MONTGOMERY & UNCLE JING PEPPER WHO LIVE IN [facility] [phone] HE HAS NOT SPOKEN WITH THEM IN 10 YEARS & DID NOT WANT ME TO CALL THEM. HE WOULD LIKE TO WAIT AND SEE IF WE CAN GET HIM INTO A SKILLED HE WOULD LIKE TO STAY LOCL IF POSSIBLE DCP- Discharge Planning Updated by [id number]: Selena Vaughn on 09/20/19 12:[address] NIKKI FROM [facility] STATED THAT THE [facility] DOES NOT HAVE AN APPROVED DX FOR HIS INSURANCE DCP- Discharge Planning Updated by [id number]: Hellen Molina on 09/19/19 11:[address] Patient Name: WALT DOMINIQUE Admission Status: ER Accout number: [id number] Admission Date: 09-17-2019 : 1985 Admission Diagnosis: Attending: DELANEY FAIRBANKS Current LOS: 2 Anticipated DC Date: Planned Disposition: Inpatient Rehab Primary Insurance: [place] PRIVATE OPTIONS [facility] Discharge Planning Comments: CM met with patient at bedside after explaining CM role and obtaining verbal consent. CM discussed availability / needs of home health, REHAB and medical equipment. HE WOULD LIKE TO GO TO [facility] AT [facility], DEENA SIGNED AND I AM FAXING REFERRAL SO THEY CAN GET STARTED ON THE INSURANCE AUTH. I WILL FOLLOW AND ASSIST NEEDED. Body Die Maker: Hellen Molina External Providers External Provider: OTHER-OTHER Next Contact Date: Service Request Date: Service Type: Resolution: Reviewer: Comments: Coverage Notice Reviewer: [id number] - Hellen Molina Notice Issued Date-Time: 09/19/2019 12:35 Notice Type: Patient Choice Letter Notice Delivered To: Relationship to Patient: Bookbinder Chief Name: Delivery Method: HAND - Hand Delivered Peggy Days: Prior Verbal Notification: Recipient Understood Notice: Yes Recipient Signature: Yes Med Rec Note Co-signed by Attending: Coverage Notice Comment: [facility] Last DP export: 09/23/19 11:23 a Patient Name: WALT DOMINIQUE Page 10921 at 1014 All edits/amendments must be made on the electronic document DICTATION DATE: 09/24/19 1013 VAT TENDER: DENY 09/24/19 1013 RPT#: [id number] DC DATE: STATUS: ADM IN [facility] [address] [place] [address] END OF REPORT
--- NOTE | 2019-09-24 11:09 | NUR ---
ADMINISTERED MEDICATIONS/ PRN PERCOCET FOR 6/10 PAIN IN ANKLES. SITTING IN BEDSIDE CHAIR. EMPTIED URINAL. DENIES ANY OTHER NEEDS. WILL CONTINUE TO MONITOR.
[2019-09-24 13:00] VITALS: BP 121/73
--- NOTE | 2019-09-24 13:33 | NUR ---
ADMINISTERED PRN ATIVAN IM FOR ANXIETY. PT RESTING, DENIES ANY OTHER NEEDS. WILL CONTINUE TO MONITOR.
--- NOTE | 2019-09-24 14:47 | NUR ---
ADMINISTERED MEDICATION, RESTING COMFORTABLY IN BED. DENIES ANY NEEDS. WILL CONTINUE TO MONITOR.
--- NOTE | 2019-09-24 16:36 | NUR ---
ADMINISTERED MEDICATION/PRN PERCOCET FOR PAIN 6/10 IN FEET. RESTING COMFORTABLY IN BED. DENIES ANY NEEDS. WILL CONTINUE TO MONITOR.
[2019-09-24 17:55] VITALS: BP 145/83
--- NOTE | 2019-09-24 18:00 | NUR ---
I have reviewed this patient and I concur with the Shift Assessment completed by the Licensed Practical Nurse today this shift.
[2019-09-24 20:00] VITALS: BP 139/83
[2019-09-25 04:00] VITALS: BP 142/63
[2019-09-25 05:51] LABS: ALBUMIN 1.8 g/dL (3.4-5.0); ALKALINE PHOSPHATASE 351 U/L (30-120); ALT (SGPT) 70 U/L (10-68); BILIRUBIN - TOTAL 17.18 mg/dL (0.2-1.3); CALC OSMOLALITY 262 mosm/kg (275-300); CALCIUM 8.4 mg/dL (8.5-10.1); CARBON DIOXIDE 29.8 mmol/L (21.0-32.0); CHLORIDE - SERUM 98 mmol/L (98-107); CREATININE - SERUM 0.8 mg/dL (0.6-1.3); GLUCOSE 101 mg/dL (74-106); POTASSIUM - SERUM 3.4 mmol/L (3.5-5.1); SODIUM 132 mmol/L (136-145); UREA NITROGEN 8 mg/dL (7-18); eGFR NON AFRICAN AMERICAN > 90 mL/min (90-120)
[2019-09-25 08:30] VITALS: BP 139/81
--- NOTE | 2019-09-25 08:32 | MORECARE ---
CASE MANAGEMENT DISCHARGE SUMMARY PATIENT: WALT DOMINIQUE UNIT: [id number] ADM DATE: 09/17/19 AGE: 33 : 85 SEX: M ROOM/BED: D.2235 AUTHOR: CURT MALIK PHYSICIAN: REFERRING PHYSICIAN: DELANEY FAIRBANKS MD DATE OF SERVICE: 09/25/19 Discharge Plan Patient Name: WALT DOMINIQUE Facility: [facility]:[place] : 1985 Planned Disposition: Inpatient Rehab Anticipated Discharge Date: Discharge Date: Expected LOS: Initial Reviewer: [id number] Initial Review Date: 09/19/2019 Generated: 09/25/19 9:31 am Comments DCP- Discharge Planning Updated by [id number]: Hellen Molina on 09/23/19 11:[address] Patient Name: WALT DOMINIQUE Admission Status: ER Accout number: [id number] Admission Date: 09-17-2019 : 1985 Admission Diagnosis:UNSPECIFIED ABDOMINAL PAIN Attending: DELANEY FAIRBANKS Current LOS: 6 Anticipated DC Date: Planned Disposition: Inpatient Rehab Primary Insurance: [place] PRIVATE OPTIONS [place] Discharge Planning Comments: FAXED REFERRAL FOR SNF TO [place]. WAITING CALL BACK. Institutional Aide: Hellen Molina DCP- Discharge Planning Updated by [id number]: Selena Vaughn on 09/20/19 4:[address] SPOKE WITH PATIENT ABOUT NOT GETTING ACCEPTED TO INPATIENT REHAB, HE WOULD LIKE TO TRY TO GET INTO A PHYSICAL THERAPY REHAB ( SKILLED) HE DID MENTION THAT HE HAS AN AUNT SAVANNAH MONTGOMERY & UNCLE JING PEPPER WHO LIVE IN [facility] [phone] HE HAS NOT SPOKEN WITH THEM IN 10 YEARS & DID NOT WANT ME TO CALL THEM. HE WOULD LIKE TO WAIT AND SEE IF WE CAN GET HIM INTO A SKILLED HE WOULD LIKE TO STAY LOCL IF POSSIBLE DCP- Discharge Planning Updated by [email or web address]: Selena Vaughn on 09/20/19 12:[address] NIKKI FROM [facility] STATED THAT THE [facility] DOES NOT HAVE AN APPROVED DX FOR HIS INSURANCE DCP- Discharge Planning Updated by [id number]: Hellen Molina on 09/19/19 11:[address] Patient Name: WALT DOMINIQUE Admission Status: ER Accout number: [id number] Admission Date: 09-17-2019 : 1985 Admission Diagnosis: Attending: DELANEY FAIRBANKS Current LOS: 2 Anticipated DC Date: Planned Disposition: Inpatient Rehab Primary Insurance: [place] PRIVATE OPTIONS [facility] Discharge Planning Comments: CM met with patient at bedside after explaining CM role and obtaining verbal consent. CM discussed availability / needs of home health, REHAB and medical equipment. HE WOULD LIKE TO GO TO [facility] AT [facility], DEENA SIGNED AND I AM FAXING REFERRAL SO THEY CAN GET STARTED ON THE INSURANCE AUTH. I WILL FOLLOW AND ASSIST NEEDED. Institutional Aide: Hellen Molina Coverage Notice Reviewer: [id number] - Hellen Molina Notice Issued Date-Time: 09/19/2019 12:35 Notice Type: Patient Choice Letter Notice Delivered To: Relationship to Patient: Poising Inspector Name: Delivery Method: HAND - Hand Delivered Peggy Days: Prior Verbal Notification: Recipient Understood Notice: Yes Recipient Signature: Yes Med Rec Note Co-signed by Attending: Coverage Notice Comment: [facility] Last DP export: 09/24/19 9:14 a Patient Name: WALT DOMINIQUE Page 17799 at 0832 All edits/amendments must be made on the electronic document DICTATION DATE: 09/25/19830 WAREHOUSING TECHNICIAN: DENY 09/25/19830 RPT#: [id number] DC DATE: STATUS: ADM IN [facility] [address] [place] [address] END OF REPORT
--- NOTE | 2019-09-25 10:23 | NUR ---
PATIENT LAYING IN BED WITH LEGS ELEVATED. NO NEEDS AT THIS TIME. CL IN REACH. WCTM
[2019-09-25 12:00] VITALS: BP 146/81
--- NOTE | 2019-09-25 13:58 | MORECARE ---
CASE MANAGEMENT DISCHARGE SUMMARY PATIENT: WALT DOMINIQUE UNIT: [id number] ADM DATE: 09/17/19 AGE: 33 : 85 SEX: M ROOM/BED: D.2235 AUTHOR: CURT MALIK PHYSICIAN: REFERRING PHYSICIAN: DELANEY FAIRBANKS MD DATE OF SERVICE: 09/25/19 Discharge Plan Patient Name: WALT DOMINIQUE Facility: [facility]:[place] : 1985 Planned Disposition: Inpatient Rehab Anticipated Discharge Date: Discharge Date: Expected LOS: Initial Reviewer: [id number] Initial Review Date: 09/19/2019 Generated: 09/25/19 2:57 pm Comments DCP- Discharge Planning Updated by [id number]: Selena Vaughn on 09/25/19 12:[address] [facility] SAID THAT THEY CAN NOT ACCOMINDATE A PATIENT ON THIS WEIGHT DCP- Discharge Planning Updated by [id number]: Selena Vaughn on 09/25/19 12:[address] I HAVE REACHED OUT TO REBECA JAMES [facility] [place] I HAVE SENT A REFERRAL TO [facility], I AM AWAITING A CALL BACK FROM [facility] DCP- Discharge Planning Updated by [id number]: Hellen Molina on 09/23/19 11:[address] Patient Name: WALT DOMINIQUE Admission Status: ER Accout number: [id number] Admission Date: 09-17-2019 : 1985 Admission Diagnosis:UNSPECIFIED ABDOMINAL PAIN Attending: DELANEY FAIRBANKS Current LOS: 6 Anticipated DC Date: Planned Disposition: Inpatient Rehab Primary Insurance: [place] PRIVATE OPTIONS [facility] Discharge Planning Comments: FAXED REFERRAL FOR SNF TO [place]. WAITING CALL BACK. Parts Cataloguer: Hellen Molina DCP- Discharge Planning Updated by [id number]: Selena Vaughn on 09/20/19 4:[address] SPOKE WITH PATIENT ABOUT NOT GETTING ACCEPTED TO INPATIENT REHAB, HE WOULD LIKE TO TRY TO GET INTO A PHYSICAL THERAPY REHAB ( SKILLED) HE DID MENTION THAT HE HAS AN AUNT SAVANNAH MONTGOMERY & UNCLE JING PEPPER WHO LIVE IN [facility]. [phone] HE HAS NOT SPOKEN WITH THEM IN 10 YEARS & DID NOT WANT ME TO CALL THEM. HE WOULD LIKE TO WAIT AND SEE IF WE CAN GET HIM INTO A SKILLED HE WOULD LIKE TO STAY LOCL IF POSSIBLE DCP- Discharge Planning Updated by [id number]: Selena Johana on 09/20/19 12:[address] NIKKI FROM [facility] STATED THAT THE [facility] DOES NOT HAVE AN APPROVED DX FOR HIS INSURANCE DCP- Discharge Planning Updated by [id number]: Hellen Molina on 09/19/19 11:[address] Patient Name: WALT DOMINIQUE Admission Status: ER Accout number: [id number] Admission Date: 09-17-2019 : 1985 Admission Diagnosis: Attending: DELANEY FAIRBANKS Current LOS: 2 Anticipated DC Date: Planned Disposition: Inpatient Rehab Primary Insurance: [place] PRIVATE OPTIONS [facility] Discharge Planning Comments: CM met with patient at bedside after explaining CM role and obtaining verbal consent. CM discussed availability / needs of home health, REHAB and medical equipment. HE WOULD LIKE TO GO TO [facility] AT [facility], [facility] SIGNED AND I AM FAXING REFERRAL SO THEY CAN GET STARTED ON THE INSURANCE AUTH. I WILL FOLLOW AND ASSIST NEEDED. Parts Cataloguer: Hellen Molina External Providers External Provider: [facility] Next Contact Date: Service Request Date: Service Type: Resolution: Reviewer: Comments: Coverage Notice Reviewer: [id number] - Hellen Molina Notice Issued Date-Time: 09/19/2019 12:35 Notice Type: Patient Choice Letter Notice Delivered To: Relationship to Patient: Christmas Tree Farm Manager Name: Delivery Method: HAND - Hand Delivered Peggy Days: Prior Verbal Notification: Recipient Understood Notice: Yes Recipient Signature: Yes Med Rec Note Co-signed by Attending: Coverage Notice Comment: [facility] Last DP export: 09/25/19 7:32 a Patient Name: WALT DOMINIQUE Page 26397 at 1358 All edits/amendments must be made on the electronic document DICTATION DATE: 09/25/19 1357 AIRPLANE MECHANIC APPRENTICE: DENY 09/25/19 1357 RPT#: [id number] DC DATE: STATUS: ADM IN [facility] [address] [place] [address] END OF REPORT
--- NOTE | 2019-09-25 15:25 | MORECARE ---
CASE MANAGEMENT DISCHARGE SUMMARY PATIENT: WALT DOMINIQUE UNIT: [id number] ADM DATE: 09/17/19 AGE: 33 : [birth year] SEX: M ROOM/BED: D.2235 AUTHOR: CURT MALIK PHYSICIAN: REFERRING PHYSICIAN: DELANEY FAIRBANKS MD DATE OF SERVICE: 09/25/19 Discharge Plan Patient Name: WALT DOMINIQUE Facility: [facility]:[place] : 1985 Planned Disposition: Inpatient Rehab Anticipated Discharge Date: Discharge Date: Expected LOS: Initial Reviewer: [id number] Initial Review Date: 09/19/2019 Generated: 09/25/19 4:25 pm Comments DCP- Discharge Planning Updated by [email or web address]: Selena Vaughn on 09/25/19 2:[address] I SPOKE WITH REBECA JAMES ([phone]) FROM [facility] FAXED REFERRL TO [phone] DCP- Discharge Planning Updated by [id number]: Selena Vaughn on 09/25/19 12:[address] [facility] SAID THAT THEY CAN NOT ACCOMINDATE A PATIENT ON THIS WEIGHT DCP- Discharge Planning Updated by [id number]: Selena Vaughn on 09/25/19 12:[address] I HAVE REACHED OUT TO REBECA JAMES OF [facility] AND [facility] OF [employer] I HAVE SENT A REFERRAL TO [facility], I AM AWAITING A CALL BACK FROM REBECA JAMES DCP- Discharge Planning Updated by [id number]: Hellen Molina on 09/23/19 11:[address] Patient Name: WALT DOMINIQUE Admission Status: ER Accout number: [id number] Admission Date: 09-17-2019 : 1985 Admission Diagnosis:UNSPECIFIED ABDOMINAL PAIN Attending: DELANEY FAIRBANKS Current LOS: 6 Anticipated DC Date: Planned Disposition: Inpatient Rehab Primary Insurance: [place] PRIVATE OPTIONS [place] Discharge Planning Comments: FAXED REFERRAL FOR SNF TO [place]. WAITING CALL BACK. Mill Machinist: Hellen Molina DCP- Discharge Planning Updated by [email or web address]: Selena Vaughn on 09/20/19 4:[address] SPOKE WITH PATIENT ABOUT NOT GETTING ACCEPTED TO INPATIENT REHAB, HE WOULD LIKE TO TRY TO GET INTO A PHYSICAL THERAPY REHAB ( SKILLED) HE DID MENTION THAT HE HAS AN AUNT SAVANNAH MONTGOMERY & UNCLE JING PEPPER WHO LIVE IN [facility]. [phone] HE HAS NOT SPOKEN WITH THEM IN 10 YEARS & DID NOT WANT ME TO CALL THEM. HE WOULD LIKE TO WAIT AND SEE IF WE CAN GET HIM INTO A SKILLED HE WOULD LIKE TO STAY LOCL IF POSSIBLE DCP- Discharge Planning Updated by [email or web address]: Selena Vaughn on 09/20/19 12:[address] NIKKI FROM [facility] STATED THAT THE [facility] DOES NOT HAVE AN APPROVED DX FOR HIS INSURANCE DCP- Discharge Planning Updated by [email or web address]: Hellen Molina on 09/19/19 11:[address] Patient Name: WALT DOMINIQUE Admission Status: ER Accout number: [id number] Admission Date: 09-17-2019 : 1985 Admission Diagnosis: Attending: DELANEY FAIRBANKS Current LOS: 2 Anticipated DC Date: Planned Disposition: Inpatient Rehab Primary Insurance: [place] PRIVATE OPTIONS [facility] Discharge Planning Comments: CM met with patient at bedside after explaining CM role and obtaining verbal consent. CM discussed availability / needs of home health, REHAB and medical equipment. HE WOULD LIKE TO GO TO [facility] AT [facility], [facility] SIGNED AND I AM FAXING REFERRAL SO THEY CAN GET STARTED ON THE INSURANCE AUTH. I WILL FOLLOW AND ASSIST NEEDED. Mill Machinist: Hellen Molina External Providers External Provider: [facility] Next Contact Date: Service Request Date: Service Type: Resolution: Reviewer: Comments: External Provider: OTHER-OTHER Next Contact Date: Service Request Date: Service Type: Resolution: Reviewer: Comments: Coverage Notice Reviewer: [id number] - Hellen Molina Notice Issued Date-Time: 09/19/2019 12:35 Notice Type: Patient Choice Letter Notice Delivered To: Relationship to Patient: Graduate Student Name: Delivery Method: HAND - Hand Delivered Peggy Days: Prior Verbal Notification: Recipient Understood Notice: Yes Recipient Signature: Yes Med Rec Note Co-signed by Attending: Coverage Notice Comment: [facility] Last DP export: 09/25/19 12:58 p Patient Name: WALT DOMINIQUE Page 56813 at 1525 All edits/amendments must be made on the electronic document DICTATION DATE: 09/25/191524 OB NURSE: DENY 09/25/191524 RPT#: [id number] DC DATE: STATUS: ADM IN [facility] [address] [place] [address] END OF REPORT
--- NOTE | 2019-09-25 16:21 | NUR ---
PT STATED HE TOOK A SHOWER AND FEELS BETTER. CL IN REACH. NO FURTHER NEEDS AT THIS TIME. WCTM
--- NOTE | 2019-09-25 16:36 | NUR ---
OT NOTE: PT COMPLETED SUPINE TO SIT WITH SPV. PT COMPLETED SIT TO STAND WITH SPV. PT COMPLETED ADL MOB WITH NO AD WITH SPV. PT COMPLETED FACE AND HAND HYGIENE AT SINK LEVEL WITH SPV. PT COMPLETED BUE AROM EXS AT EOB. [phone] THANK YOU,JASON RIZO
[2019-09-25 16:40] VITALS: BP 145/87
[2019-09-25 20:00] VITALS: BP 130/79
[2019-09-26] VITALS: BP 153/97
[2019-09-26 04:00] VITALS: BP 116/54
--- NOTE | 2019-09-26 08:15 | NUR ---
LOTION RUBBED ONTO PT LOWER EXTREMITIES. RIGHT LOWER LEG FEELS WARM. CL IN REACH. NO FURTHER NEEDS AT THIS TIME. WCTM
[2019-09-26 09:17] VITALS: BP 142/91
--- NOTE | 2019-09-26 10:25 | NUR ---
LORI COLA, EMPTY CUP, AND ICE CREAM PROVIDED PT REQUESTED. NO FURTHER NEEDS AT THIS TIME. WCTM
--- NOTE | 2019-09-26 11:56 | MORECARE ---
CASE MANAGEMENT DISCHARGE SUMMARY PATIENT: WALT DOMINIQUE UNIT: [id number] ADM DATE: 09/17/19 AGE: 33 : 85 SEX: M ROOM/BED: D.2235 AUTHOR: CURT MALIK PHYSICIAN: REFERRING PHYSICIAN: DELANEY FAIRBANKS MD DATE OF SERVICE: 09/26/19 Discharge Plan Patient Name: WALT DOMINIQUE Facility[facility]:[place] : 1985 Planned Disposition: Inpatient Rehab Anticipated Discharge Date: Discharge Date: Expected LOS: Initial Reviewer: [id number] Initial Review Date: 09/19/2019 Generated: 09/26/19 12:55 pm Comments DCP- Discharge Planning Updated by [id number]: Selena Vaughn on 09/26/19 10:[address] UPDATED CLINICALS [facility]XED TO [facility] ([phone]) HER FAX # IS [phone] DCP- Discharge Planning Updated by [email or web address]: Selena Vauhgn on 09/25/19 2:[address] I SPOKE WITH REBECA JAMES ([phone]) FROM [facility] FAXED REFERRL TO [phone] DCP- Discharge Planning Updated by [email or web address]: Selena Vaughn on 09/25/19 12:[address] [facility] SAID THAT THEY CAN NOT ACCOMINDATE A PATIENT ON THIS WEIGHT DCP- Discharge Planning Updated by [email or web address]: Selena Vaughn on 09/25/19 12:[address] I HAVE REACHED OUT TO REBECA JAMES OF [place] [facility] I HAVE SENT A REFERRAL TO [facility], I AM AWAITING A CALL BACK FROM REBECA JAMES DCP- Discharge Planning Updated by [id number]: Hellen Molina on 09/23/19 11:[address] Patient Name: WALT DOMINIQUE Admission Status: ER Accout number: [id number] Admission Date: 09-17-2019 : 1985 Admission Diagnosis:UNSPECIFIED ABDOMINAL PAIN Attending: DELANEY FAIRBANKS Current LOS: 6 Anticipated DC Date: Planned Disposition: Inpatient Rehab Primary Insurance: [place] [employer]IONS [employer] Discharge Planning Comments: FAXED REFERRAL FOR SNF TO [facility]. WAITING CALL BACK. Weatherization Administrator: Hellen Molina DCP- Discharge Planning Updated by [id number]: Selena Johana on 09/20/19 4:[address] SPOKE WITH PATIENT ABOUT NOT GETTING ACCEPTED TO INPATIENT REHAB, HE WOULD LIKE TO TRY TO GET INTO A PHYSICAL THERAPY REHAB ( SKILLED) HE DID MENTION THAT HE HAS AN AUNT SAVANNAH MONTGOMERY & UNCLE JING PEPPER WHO LIVE IN [facility]. [phone] HE HAS NOT SPOKEN WITH THEM IN 10 YEARS & DID NOT WANT ME TO CALL THEM. HE WOULD LIKE TO WAIT AND SEE IF WE CAN GET HIM INTO A SKILLED HE WOULD LIKE TO STAY LOCL IF POSSIBLE DCP- Discharge Planning Updated by [email or web address]: Selena Vaughn on 09/20/19 12:[address] NIKKI FROM [facility] STATED THAT THE PATINET DOES NOT HAVE AN APPROVED DX FOR HIS INSURANCE DCP- Discharge Planning Updated by [email or web address]: Hellen Molina on 09/19/19 11:[address] Patient Name: WALT DOMINIQUE Admission Status: ER Accout number: [id number] Admission Date: 09-17-2019 : 1985 Admission Diagnosis: Attending: DELANEY FAIRBANKS Current LOS: 2 Anticipated DC Date: Planned Disposition: Inpatient Rehab Primary Insurance: [place] PRIVATE OPTIONS [facility] Discharge Planning Comments: CM met with patient at bedside after explaining CM role and obtaining verbal consent. CM discussed availability / needs of home health, REHAB and medical equipment. HE WOULD LIKE TO GO TO [facility] AT [facility], [facility] SIGNED AND I AM FAXING REFERRAL SO THEY CAN GET STARTED ON THE INSURANCE AUTH. I WILL FOLLOW AND ASSIST NEEDED. Weatherization Administrator: Hellen Molina Coverage Notice Reviewer: [id number] - Hellen Molina Notice Issued Date-Time: 09/19/2019 12:35 Notice Type: Patient Choice Letter Notice Delivered To: Relationship to Patient: Dental Office Receptionist Name: Delivery Method: HAND - Hand Delivered Peggy Days: Prior Verbal Notification: Recipient Understood Notice: Yes Recipient Signature: Yes Med Rec Note Co-signed by Attending: Coverage Notice Comment: [facility] Last DP export: 09/25/19 2:25 p Patient Name: WALT DOMINIQUE Page 76160 at 1156 All edits/amendments must be made on the electronic document DICTATION DATE: 09/26/19 1156 MOLD CHIPPER: DENY 09/26/19 1156 RPT#: [id number] DC DATE: STATUS: ADM IN [facility] [address] [place] [address] END OF REPORT
[2019-09-26 13:17] VITALS: BP 141/77
--- NOTE | 2019-09-26 14:49 | NUR ---
CALLED DR FAIRBANKS OFFICE SPOKE WITH DRAKE ABOUT BLOOD IN PT URINE.
[2019-09-26 17:31] VITALS: BP 132/76
[2019-09-26 17:44] LABS: BILIRUBIN NEGATIVE (NEGATIVE); GLUCOSE NEGATIVE (NEGATIVE); KETONE NEGATIVE (NEGATIVE); NITRITE NEGATIVE (NEGATIVE); SPECIFIC GRAVITY 1.015 (1.005-1.020); UROBILINOGEN NORMAL (NORMAL)
--- NOTE | 2019-09-26 18:59 | NUR ---
OT NOTE: (AM) PT COMPLETED ADL MOB WITH SPV. (PM) PT COMPLETED SIT TO STAND WITH SPV. PT COMPLETED ADL MOB TO SINK WITH SPV. PT COMPLETED ORAL HYGIENE, FACE HYGIENE , AND HAIR GROOMING AT SINK LEVEL WHILE STANDING WITH SPV. [phone] THANK YOU,JASON RIZO
--- NOTE | 2019-09-26 19:00 | NUR ---
REPORT GIVEN BY CHRISTIN AVILES
--- NOTE | 2019-09-26 19:20 | NUR ---
BACK TO PT ROOM. HIS DAY NURSE HAS JUST GIVEN A PERCOCET FOR PAIN. I EXPLAINED THAT I WOULD BE BACK IN HIS ROOM IN A FEW MINUTES TO DO A COMPLETE ASSESSMENT. HE VERBALIZED UNDERSTANDING.
[2019-09-26 20:00] VITALS: BP 124/69
--- NOTE | 2019-09-26 20:40 | NUR ---
ASSESSMENT COMPLETED. PT STATES HIS PAIN IS BETTER AFTER THE PAIN MEDS. HEART SOUNDS GOOD, LUNGS SOUND CLEAR BUT SOMEWHAT DIFFICULT TO HEAR. BOWEL SOUNDS IN ALL QUADS. SKIN IS WARM AND DRY. BILATERAL LOWER EXTREMITIES ARE EXTREMELY EDEMATOUS. THEY ARE RED IN COLOR. ON THE RIGHT TOP OF THE FOOT THERE IS SOME SKIN COMING OFF BUT THE AREA IS NOT BROKEN. PT HAS SOME GENERALIZED EDEMA BUT ESPECIALLY IN HIS FEET. HE IS JAUNDICE. THE SCLERA OF HIS EYES SHOW THIS WELL. HE TELLS ME THAT HE IS "DONE WITH ALCOHOL". ENCOURAGED HIM TO KEEP THAT ATTITUDE AND NOT SLIP BACK INTO IT. HE STATES HE WON'T. PT HAS NO C/O OR NEEDS AT THIS TIME.
--- NOTE | 2019-09-26 21:30 | NUR ---
PT IS DOING WELL WATCHING TV. HE HAS NO NEEDS. HE TELLS ME HIS PAIN MEDS ARE WEARING OFF. I LET HIM KNOW THE NEXT TIME HIS MEDICATION WAS DUE.
--- NOTE | 2019-09-26 22:55 | NUR ---
CHECKED IN ON PT. HE IS RESTING WITH HIS EYES CLOSED WITH TV ON.
--- NOTE | 2019-09-27 00:20 | NUR ---
PT IS AWAKE UP IN HIS CHAIR WATCHING TV. NO C/O OR NEEDS AT THIS TIME. REQUESTED A CARTEN OF MILK AND FRESH WATER. BOTH DELIVERED
--- NOTE | 2019-09-27 02:03 | NUR ---
PT REQUESTED A SHOT OF ATIVAN SO HE COULD SLEEP. PT RECEIVED 1 MG IM PER .
[2019-09-27 04:00] VITALS: BP 130/89
--- NOTE | 2019-09-27 04:07 | NUR ---
PT IS RESTING QUIETLY IN BED. RESPIRATIONS EVEN AND UNLABORED. NO NEEDS OR C/O
--- NOTE | 2019-09-27 05:15 | NUR ---
PT IS SITTING UP IN HIS CHAIR. I WALKED IN HIS ROOM AND HE SAID I NEED MY COFFEE, THE NEWS AND MY PERCOCET. I WAS GIVEN A CUP OF COFFEE WITH SEVERAL FIXINGS AND HIS PERCOCET. HIS FEET REMAIN WITH MUCH EDEMA AND A RED COLORING.
--- NOTE | 2019-09-27 06:41 | NUR ---
STILL SITTING IN CHAIR WITH NO C/O OR NEEDS
--- NOTE | 2019-09-27 06:50 | NUR ---
ALERT AND ORIENTED. SITTING UP IN CHAIR. NO C/O PAIN. NO S/S OF ACUTE DISTRESS NOTED. GENERALIZED EDEMA BUE AND BLE. SKIN JAUNDICE IN COLOR. SCLERA YELLOW. DENIES ANY NEEDS AT THIS TIME. CALL LIGHT IN REACH. WILL CONTINUE TO MONITOR.
[2019-09-27 08:30] VITALS: BP 134/81
--- NOTE | 2019-09-27 10:28 | MORECARE ---
CASE MANAGEMENT DISCHARGE SUMMARY PATIENT: WALT DOMINIQUE UNIT: [id number] ADM DATE: 09/17/19 AGE: 33 : 85 SEX: M ROOM/BED: D.2235 AUTHOR: CURT MALIK PHYSICIAN: REFERRING PHYSICIAN: DELANEY FAIRBANKS MD DATE OF SERVICE: 09/27/19 Discharge Plan Patient Name: WALT DOMINIQUE Facility: [facility]:[place] : 1985 Planned Disposition: Inpatient Rehab Anticipated Discharge Date: Discharge Date: Expected LOS: Initial Reviewer: [id number] Initial Review Date: 09/19/2019 Generated: 09/27/19 11:27 am Comments DCP- Discharge Planning Updated by [email or web address]: Selena Vaughn on 09/27/19 9:[address] LM WITH REBECA TO CALL ME BACK ABOUT REFERRAL DCP- Discharge Planning Updated by [email or web address]: Selena Vaughn on 09/26/19 10:[address] UPDATED CLINICALS [facility]ED TO [facility] ([phone]) HER FAX # IS [phone] DCP- Discharge Planning Updated by [email or web address]: Selena Vaughn on 09/25/19 2:[address] I SPOKE WITH REBECA JAMES ([phone]) FROM [facility] FAXED REFERRL TO [phone] DCP- Discharge Planning Updated by [id number]: Selena Vaughn on 09/25/19 12:[address] [facility] SAID THAT THEY CAN NOT ACCOMINDATE A PATIENT ON THIS WEIGHT DCP- Discharge Planning Updated by [id number]: Selena Vaughn on 09/25/19 12:[address] I HAVE REACHED OUT TO REBECA JAMES OF [place] [facility] I HAVE SENT A REFERRAL TO [facility], I AM AWAITING A CALL BACK FROM REBECA JAMES DCP- Discharge Planning Updated by [id number]: Hellen Molina on 09/23/19 11:[address] Patient Name: WALT DOMINIQUE Admission Status: ER Accout number: [id number] Admission Date: 09-17-2019 : 1985 Admission Diagnosis:UNSPECIFIED ABDOMINAL PAIN Attending: DELANEY FAIRBANKS Current LOS: 6 Anticipated DC Date: Planned Disposition: Inpatient Rehab Primary Insurance: [employer] PRIVATE OPTIONS [facility] Discharge Planning Comments: FAXED REFERRAL FOR SNF TO [facility]. WAITING CALL BACK. Manager Of Broadcast Content: Hellen Molina DCP- Discharge Planning Updated by [id number]: Selena Vaughn on 09/20/19 4:[address] SPOKE WITH PATIENT ABOUT NOT GETTING ACCEPTED TO INPATIENT REHAB, HE WOULD LIKE TO TRY TO GET INTO A PHYSICAL THERAPY REHAB ( SKILLED) HE DID MENTION THAT HE HAS AN AUNT SAVANNAH MONTGOMERY & UNCLE JING PEPPER WHO LIVE IN [facility]. [phone] HE HAS NOT SPOKEN WITH THEM IN 10 YEARS & DID NOT WANT ME TO CALL THEM. HE WOULD LIKE TO WAIT AND SEE IF WE CAN GET HIM INTO A SKILLED HE WOULD LIKE TO STAY LOCL IF POSSIBLE DCP- Discharge Planning Updated by [id number]: Selena Vaughn on 09/20/19 12:[address] NIKKI FROM [facility] STATED THAT THE PATINET DOES NOT HAVE AN APPROVED DX FOR HIS INSURANCE DCP- Discharge Planning Updated by [id number]: Hellen oMlina on 09/19/19 11:[address] Patient Name: WALT DOMINIQUE Admission Status: ER Accout number: [id number] Admission Date: 09-17-2019 : 1985 Admission Diagnosis: Attending: DELANEY FAIRBANKS Current LOS: 2 Anticipated DC Date: Planned Disposition: Inpatient Rehab Primary Insurance: [employer] PRIVATE OPTIONS [facility] Discharge Planning Comments: CM met with patient at bedside after explaining CM role and obtaining verbal consent. CM discussed availability / needs of home health, REHAB and medical equipment. HE [facility], [facility] SIGNED AND I AM FAXING REFERRAL SO THEY CAN GET STARTED ON THE INSURANCE AUTH. I WILL FOLLOW AND ASSIST NEEDED. Manager Of Broadcast Content: Hellen Molina Coverage Notice Reviewer: [id number] - Hellen Molina Notice Issued Date-Time: 09/19/2019 12:35 Notice Type: Patient Choice Letter Notice Delivered To: Relationship to Patient: Manager Recruiting Name: Delivery Method: HAND - Hand Delivered Peggy Days: Prior Verbal Notification: Recipient Understood Notice: Yes Recipient Signature: Yes Med Rec Note Co-signed by Attending: Coverage Notice Comment: [facility] Last DP export: 09/26/19 10:56 a Patient Name: WALT DOMINIQUE Page 42794 at 1028 All edits/amendments must be made on the electronic document DICTATION DATE: 09/27/19 1027 CHILD GUIDANCE COUNSELOR: DENY 09/27/19 1027 RPT#: [id number] DC DATE: STATUS: ADM IN [facility] [address] [place] [address] END OF REPORT
--- NOTE | 2019-09-27 10:51 | NUR ---
I have reviewed this patient and I concur with the Shift Assessment completed by the Licensed Practical Nurse today this shift.
[2019-09-27 12:00] VITALS: BP 147/86
--- NOTE | 2019-09-27 17:05 | MORECARE ---
CASE MANAGEMENT DISCHARGE SUMMARY PATIENT: WALT DOMINIQUE UNIT: [id number] ADM DATE: 09/17/19 AGE: 33 : 85 SEX: M ROOM/BED: D.2235 AUTHOR: CURT MALIK PHYSICIAN: REFERRING PHYSICIAN: DELANEY FAIRBANKS MD DATE OF SERVICE: 09/27/19 Discharge Plan Patient Name: WALT DOMINIQUE Facility: [facility]:[place] : 1985 Planned Disposition: Fdc Facility Anticipated Discharge Date: Discharge Date: Expected LOS: Initial Reviewer: [id number] Initial Review Date: 09/19/2019 Generated: 09/27/19 6:04 pm Comments DCP- Discharge Planning Updated by [id number]: Hellen Molina on 09/27/19 4:[address] Patient Name: WALT DOMINIQUE Admission Status: ER Accout number: [id number] Admission Date: 09-17-2019 : 1985 Admission Diagnosis:UNSPECIFIED ABDOMINAL PAIN Attending: DELANEY FAIRBANKS Current LOS: 10 Anticipated DC Date: Planned Disposition: Fdc Facility Primary Insurance: [place] PRIVATE OPTIONS [employer] Discharge Planning Comments: RECEIVED CALL FROM [facility]. THEY ARE REVEIWING FINANCIALS AND POSSIBLE PLACEMENT WITH THEM MONDAY. DR. FAIRBANKS IS AWARE. Salesperson Recreational Vehicles: Hellen Molina DCP- Discharge Planning Updated by [id number]: Selena Vaughn on 09/27/19 9:[address] LM WITH REBECA TO CALL ME BACK ABOUT REFERRAL DCP- Discharge Planning Updated by [id number]: Selena Vaughn on 09/26/19 10:[address] UPDATED CLINICALS [facility]ED TO [facility] ([phone]) HER FAX # IS [phone] DCP- Discharge Planning Updated by [id number]: Selena Vaughn on 09/25/19 2:[address] I SPOKE WITH REBECA JAMES ([phone]) FROM [facility] FAXED REFERRL TO [phone] DCP- Discharge Planning Updated by [email or web address]: Selena Vaughn on 09/25/19 12:[address] [facility] SAID THAT THEY CAN NOT ACCOMINDATE A PATIENT ON THIS WEIGHT DCP- Discharge Planning Updated by [email or web address]: Selena Vaughn on 09/25/19 12:[address] I HAVE REACHED OUT TO REBECA JAMES OF [facility] [facility] I HAVE SENT A REFERRAL TO [facility], I AM AWAITING A CALL BACK FROM REBECA [facility]WAIN DCP- Discharge Planning Updated by [id number]: Hellen Molina on 09/23/19 11:[address] Patient Name: WALT DOMINIQUE Admission Status: ER Accout number: [id number] Admission Date: 09-17-2019 : 1985 Admission Diagnosis:UNSPECIFIED ABDOMINAL PAIN Attending: DELANEY FAIRBANKS Current LOS: 6 Anticipated DC Date: Planned Disposition: Inpatient Rehab Primary Insurance: [employer] [place] PRIVATE OPTIONS [facility] Discharge Planning Comments: FAXED REFERRAL FOR SNF TO [facility]. WAITING CALL BACK. Salesperson Recreational Vehicles: Hellen Molina DCP- Discharge Planning Updated by [id number]: Selena Vaughn on 09/20/19 4:[address] SPOKE WITH PATIENT ABOUT NOT GETTING ACCEPTED TO INPATIENT REHAB, HE WOULD LIKE TO TRY TO GET INTO A PHYSICAL THERAPY REHAB ( SKILLED) HE DID MENTION THAT HE HAS AN AUNT SAVANNAH MONTGOMERY & UNCLE JING PEPPER WHO LIVE IN [facility]. [phone] HE HAS NOT SPOKEN WITH THEM IN 10 YEARS & DID NOT WANT ME TO CALL THEM. HE WOULD LIKE TO WAIT AND SEE IF WE CAN GET HIM INTO A SKILLED HE WOULD LIKE TO STAY LOCL IF POSSIBLE DCP- Discharge Planning Updated by [id number]: Selena Vaughn on 09/20/19 12:[address] NIKKI FROM [facility] STATED THAT THE [facility] DOES NOT HAVE AN APPROVED DX FOR HIS INSURANCE DCP- Discharge Planning Updated by [id number]: Hellen Molina on 09/19/19 11:[address] Patient Name: WALT DOMINIQUE Admission Status: ER Accout number: [id number] Admission Date: 09-17-2019 : 1985 Admission Diagnosis: Attending: DELANEY FAIRBANKS Current LOS: 2 Anticipated DC Date: Planned Disposition: Inpatient Rehab Primary Insurance: [employer] [place] PRIVATE OPTIONS [employer] Discharge Planning Comments: CM met with patient at bedside after explaining CM role and obtaining verbal consent. CM discussed availability / needs of home health, REHAB and medical equipment. HE WOULD LIKE TO GO TO [facility] AT [facility], [facility] SIGNED AND I AM FAXING REFERRAL SO THEY CAN GET STARTED ON THE INSURANCE AUTH. I WILL FOLLOW AND ASSIST NEEDED. Salesperson Recreational Vehicles: Hellen Molina Coverage Notice Reviewer: [id number] - Hellen Molina Notice Issued Date-Time: 09/19/2019 12:35 Notice Type: Patient Choice Letter Notice Delivered To: Relationship to Patient: Secretary Name: Delivery Method: HAND - Hand Delivered Peggy Days: Prior Verbal Notification: Recipient Understood Notice: Yes Recipient Signature: Yes Med Rec Note Co-signed by Attending: Coverage Notice Comment: [facility] Last DP export: 09/27/19 9:28 a Patient Name: WALT DOMINIQUE Page 47169 at 1705 All edits/amendments must be made on the electronic document DICTATION DATE: 09/27/19 170 HEAD SUGAR REPROCESS OPERATOR: DENY 09/27/19 170 RPT#: [id number] DC DATE: STATUS: ADM IN [facility] [address] [place] [address] END OF REPORT
[2019-09-27 17:19] VITALS: BP 136/55
--- NOTE | 2019-09-27 17:19 | NUR ---
OT NOTE: PT COMPLETED ADL MOB WITH SPV. PT COMPLETED SIT TO STAND WITH SPV. PT COMPLETED TOILETING AND HYGIENE TASKS WITH SPV. [phone] THANK YOU, JASON RIZO
--- NOTE | 2019-09-27 18:48 | NUR ---
A&O. SITTING UP IN CHAIR. NO C/O PAIN. NO S/S OF ACUTE DISTRESS NOTED. DENIES ANY NEEDS AT THIS TIME. CALL LIGHT IN REACH. WILL CONTINUE TO MONITOR.
[2019-09-27 20:00] VITALS: BP 149/85
[2019-09-28] VITALS: BP 137/73
--- NOTE | 2019-09-28 04:08 | NUR ---
ASSESSED AT THE BEGINNING OF THE SHIFT. PT IS ALERT AND ORIENTED, ABLE TO VERBALZIE NEEDS. HE HAS ASKED FOR PAIN MEDS A COUPLE OF TIMES AND AROUND MIDNIGHT REQUESTED ATIVAN TO HELP HIM SLEEP. HE IS ABLE TO BE UP TO THE BATHROOM BY HIMSELF AND WAS TAKEN SNACKS BEFORE BED.
--- NOTE | 2019-09-28 07:30 | NUR ---
AWAKE AND ALERT. DENIES NEEDS.
[2019-09-28 07:33] LABS: BASOPHILS 1.2 % (0-2); EOSINOPHILS 4.6 % (0-7); HEMATOCRIT 38.8 % (42.0-54.0); IMMATURE GRANULOCYTES 3.9 % (0-5); LYMPHOCYTES 19.3 % (15-50); MCH 30.1 pg (26.0-34.0); MCHC 30.9 g/dL (31.0-37.0); MCV 97.2 fL (80.0-100.0); MEAN PLATELET VOLUME 10.5 fL (7.4-10.4); MONOCYTES 8.2 % (2-11); NEUTROPHILS 62.8 % (40-80); RBC 3.99 10x6/uL (4.20-6.10); RDW 21.9 % (11.5-14.5); WBC 10.4 10x3/uL (4.8-10.8)
[2019-09-28 07:34] LABS: PLATELET COUNT 285 10x3/uL (130-400)
[2019-09-28 07:47] LABS: ALKALINE PHOSPHATASE 373 U/L (30-120); ALT (SGPT) 78 U/L (10-68); BILIRUBIN - TOTAL 14.17 mg/dL (0.2-1.3); CALC OSMOLALITY 265 mosm/kg (275-300); CARBON DIOXIDE 28.3 mmol/L (21.0-32.0); CHLORIDE - SERUM 97 mmol/L (98-107); CREATININE - SERUM 0.8 mg/dL (0.6-1.3); GLUCOSE 111 mg/dL (74-106); POTASSIUM - SERUM 3.8 mmol/L (3.5-5.1); PROTEIN - SERUM 6.5 g/dL (6.4-8.2); SODIUM 133 mmol/L (136-145); UREA NITROGEN 11 mg/dL (7-18); eGFR NON AFRICAN AMERICAN > 90 mL/min (90-120)
[2019-09-28 08:00] VITALS: BP 133/69
--- NOTE | 2019-09-28 09:40 | NUR ---
REQUESTED AND GIVEN ONE PERCOCET PO FOR C/O LEG PAIN LEVEL 8. WILL MONITOR.
--- NOTE | 2019-09-28 09:50 | NUR ---
AWAKE AND ALERT. ORIENTED X3. REQUESTED AND GIVEN ONE PERCOCET PO FOR C/O BILATERAL LEG PAIN LEVEL 8. WILL MONITOR. LUNGS ARE CLEAR BIALTEARLLY, NO COUGH NOTED. SKIN IS INTACT WITHOUT REDNESS BUT 2-3 PLUS EDEMA NOTED TO BILATERAL LOWER EXTREMETIES. NO IV ACCESS AT THIS TIME. UP TO SHOWER WITH SET UP ASSIST. ATE ALL OF BREAKFAST WITHOUT DIFFICULTY. DENIES NEEDS.
[2019-09-28 12:00] VITALS: BP 164/88
--- NOTE | 2019-09-28 12:00 | NUR ---
RESTING QUIETLY, DENIES NEEDS.
--- NOTE | 2019-09-28 13:24 | NUR ---
REQUESTED AND GIVEN ONE MG ATIVAN IM FOR C/O ANXIETY. WILL MONITOR.
--- NOTE | 2019-09-28 14:35 | NUR ---
REQUESTED AND GIVEN ONE PERCOCET PO FOR C/O LEG PAIN LEVEL 8. WILL MONITOR.
[2019-09-28 16:00] VITALS: BP 114/77
--- NOTE | 2019-09-28 18:09 | NUR ---
ATE ALL OF SUPPER. NO C/O AT THIS TIME. DENIES NEEDS. NO CHANGES NOTED.
--- NOTE | 2019-09-28 18:38 | NUR ---
REQUESTED AND GIVEN ONE PERCOCET PO FOR C/O LEG PAIN LEVEL 7. WILL MONITOR.
[2019-09-28 20:00] VITALS: BP 142/73
--- NOTE | 2019-09-28 23:03 | NUR ---
alert and orented able to voice needs and wants to staff. No IV, on room air. percocet prn for pain control. lovenox for DVT control. Watting on placment.
[2019-09-29 01:50] VITALS: BP 135/70
[2019-09-29 04:00] VITALS: BP 130/68
--- NOTE | 2019-09-29 07:00 | NUR ---
RECEIVED REPROT, ASSUMED CARE, UPON ENTERING ROOM PT UP AND WALKING AROUND. NO DISTRESS NOTED, BREATHING EVEN UNLABORED, CALL LIGHT AT BEDSIDE, EDEMA 3+ TO BLE, DENIES NEEDS, WILL CONTINUE POC
[2019-09-29 09:04] VITALS: BP 142/87
--- NOTE | 2019-09-29 12:32 | NUR ---
PAGED DR FAIRBANKS, AWAITING CALL BACK. PT REQUESTING A STOOL SOFTNER
[2019-09-29 13:00] VITALS: BP 116/52
--- NOTE | 2019-09-29 13:12 | NUR ---
PATIENT IS UP IN CHAIR. HE IS WITHOUT DISTRESS.
--- NOTE | 2019-09-29 15:24 | NUR ---
PT REQUESTED NO 4 O'CLOCK VITALS HE IS TRYING TO NAP, ATIVAN JUST GIVEN PER REQUEST
[2019-09-29 20:00] VITALS: BP 141/69
[2019-09-30] VITALS: BP 166/87
[2019-09-30 04:00] VITALS: BP 146/76
[2019-09-30 06:16] LABS: ALBUMIN 2.1 g/dL (3.4-5.0); ALKALINE PHOSPHATASE 366 U/L (30-120); ALT (SGPT) 89 U/L (10-68); BILIRUBIN - TOTAL 11.84 mg/dL (0.2-1.3); CALC OSMOLALITY 266 mosm/kg (275-300); CALCIUM 8.3 mg/dL (8.5-10.1); CARBON DIOXIDE 30.8 mmol/L (21.0-32.0); CHLORIDE - SERUM 99 mmol/L (98-107); CREATININE - SERUM 0.8 mg/dL (0.6-1.3); GLUCOSE 109 mg/dL (74-106); POTASSIUM - SERUM 3.9 mmol/L (3.5-5.1); PROTEIN - SERUM 5.8 g/dL (6.4-8.2); SODIUM 133 mmol/L (136-145); UREA NITROGEN 13 mg/dL (7-18); eGFR NON AFRICAN AMERICAN > 90 mL/min (90-120)
--- NOTE | 2019-09-30 07:15 | NUR ---
RECEIVED REPORT, ASSUMED CARE, BREATHING EVEN UNLABORED, CALL LIGHT IN REACH, PT SITTING UP IN CHAIR, AWAITING DC, DENIES NEEDS, ASSESSMENT COMPLETE, WILL CONTINUE POC
[2019-09-30] MEDS ORDERED: NICODERM CQ1 EAC3 TRANSDERM (07:52)
[2019-09-30] MEDS ORDERED: ALDACTONE100 MG PO (07:53)
[2019-09-30] MEDS ORDERED: LASIX40 MG PO (07:53)
[2019-09-30] MEDS ORDERED: CARAFATE1 G PO (07:53)
[2019-09-30] MEDS ORDERED: COLACE100 MG PO (07:53)
[2019-09-30] MEDS ORDERED: MIRALAX17 GM PO (07:54)
[2019-09-30] MEDS ORDERED: ULTRAM50 MG PO (07:55)
[2019-09-30 08:00] VITALS: BP 149/83
--- NOTE | 2019-09-30 10:31 | MORECARE ---
CASE MANAGEMENT DISCHARGE SUMMARY PATIENT: WALT DOMINIQUE UNIT: [id number] ADM DATE: 09/17/19 AGE: 33 : 85 SEX: M ROOM/BED: D.2235 AUTHOR: CURT MALIK PHYSICIAN: REFERRING PHYSICIAN: DELANEY FAIRBANKS MD DATE OF SERVICE: 09/30/19 Discharge Plan Patient Name: WALT DOMINIQUE [facility] [facility] 1985 Planned Disposition: Alf Facility Anticipated Discharge Date: Discharge Date: Expected LOS: Initial Reviewer: [id number] Initial Review Date: 09/19/2019 Generated: 09/30/19 11:31 am Comments DCP- Discharge Planning Updated by [id number]: Selena Vaughn on 09/30/19 9:[address] PATIENT WILL BE DISCHARGING TO [facility] TO A SKILLED BED TODAY VIA THEIR TRANSPORTATION DCP- Discharge Planning Updated by [id number]: Hellen Molina on 09/27/19 4:[address] Patient Name: WALT DOMINIQUE Admission Status: ER Accout number: [id number] Admission Date: 09-17-2019 : 1985 Admission Diagnosis:UNSPECIFIED ABDOMINAL PAIN Attending: DELANEY FAIRBANKS Current LOS: 10 Anticipated DC Date: Planned Disposition: Alf Facility Primary Insurance: [place] [employer]IONS [employer] Discharge Planning Comments: RECEIVED CALL FROM [facility]. THEY ARE REVEIWING FINANCIALS AND POSSIBLE PLACEMENT WITH THEM MONDAY. DR. FAIRBANKS IS AWARE. Branch Account Executive: Hellen Molina DCP- Discharge Planning Updated by [id number]: Selena Vaughn on 09/27/19 9:[address] LM WITH REBECA TO CALL ME BACK ABOUT REFERRAL DCP- Discharge Planning Updated by [id number]: Selena Vaughn on 09/26/19 10:[address] UPDATED CLINICALS FAXED TO [facility] ([phone]) HER FAX # IS [phone] DCP- Discharge Planning Updated by [email or web address]: Selena Vaughn on 09/25/19 2:[address] I SPOKE WITH REBECA JAMES ([phone]) FROM [facility] FAXED REFERRL TO [phone] DCP- Discharge Planning Updated by [id number]: Selena Vaughn on 09/25/19 12:[address] [facility] SAID THAT THEY CAN NOT ACCOMINDATE A PATIENT ON THIS WEIGHT DCP- Discharge Planning Updated by [email or web address]: Selena Vaughn on 09/25/19 12:[address] I HAVE REACHED OUT TO [facility] AND [facility] I HAVE SENT A REFERRAL TO [facility], I AM AWAITING A CALL BACK FROM [facility] DCP- Discharge Planning Updated by [email or web address]: Hellen Molina on 09/23/19 11:[address] Patient Name: WALT DOMINIQUE Admission Status: ER Accout number: [id number] Admission Date: 09-17-2019 : 1985 Admission Diagnosis:UNSPECIFIED ABDOMINAL PAIN Attending: DELANEY FAIRBANKS Current LOS: 6 Anticipated DC Date: Planned Disposition: Inpatient Rehab Primary Insurance: [employer] PRIVATE OPTIONS [facility] Discharge Planning Comments: FAXED REFERRAL FOR SNF TO [facility]. WAITING CALL BACK. Branch Account Executive: Hellen Molina DCP- Discharge Planning Updated by [id number]: Selena Vaughn on 09/20/19 4:[address] SPOKE WITH PATIENT ABOUT NOT GETTING ACCEPTED TO INPATIENT REHAB, HE WOULD LIKE TO TRY TO GET INTO A PHYSICAL THERAPY REHAB ( SKILLED) HE DID MENTION THAT HE HAS AN AUNT SAVANNAH MONTGOMERY & UNCLE JING PEPPER WHO LIVE IN [facility]. [phone] HE HAS NOT SPOKEN WITH THEM IN 10 YEARS & DID NOT WANT ME TO CALL THEM. HE WOULD LIKE TO WAIT AND SEE IF WE CAN GET HIM INTO A SKILLED HE WOULD LIKE TO STAY LOCL IF POSSIBLE DCP- Discharge Planning Updated by [id number]: Selena Vaughn on 09/20/19 12:[address] NIKKI FROM [facility] STATED THAT THE [facility] DOES NOT HAVE AN APPROVED DX FOR HIS INSURANCE DCP- Discharge Planning Updated by [id number]: Hellen Molina on 09/19/19 11:[address] Patient Name: WALT DOMINIQUE Admission Status: ER Accout number: [id number] Admission Date: 09-17-2019 : 1985 Admission Diagnosis: Attending: DELANEY FAIRBANKS Current LOS: 2 Anticipated DC Date: Planned Disposition: Inpatient Rehab Primary Insurance: [employer] [place] [employer]IONS [employer] Discharge Planning Comments: CM met with patient at bedside after explaining CM role and obtaining verbal consent. CM discussed availability / needs of home health, REHAB and medical equipment. HE WOULD LIKE TO GO TO [facility] AT [facility], [facility] SIGNED AND I AM FAXING REFERRAL SO THEY CAN GET STARTED ON THE INSURANCE AUTH. I WILL FOLLOW AND ASSIST NEEDED. Branch Account Executive: Hellen Molina Coverage Notice Reviewer: [id number] - Hellen Molina Notice Issued Date-Time: 09/19/2019 12:35 Notice Type: Patient Choice Letter Notice Delivered To: Relationship to Patient: Ict Educator Name: Delivery Method: HAND - Hand Delivered Peggy Days: Prior Verbal Notification: Recipient Understood Notice: Yes Recipient Signature: Yes Med Rec Note Co-signed by Attending: Coverage Notice Comment: [facility] Last DP export: 09/27/19 4:05 p Patient Name: WALT DOMINIQUE Page [id number] at 1031 All edits/amendments must be made on the electronic document DICTATION DATE: 09/30/19 1031 MACHINE OPERATOR HELPER: DENY 09/30/19 1031 RPT#: [id number] DC DATE: STATUS: ADM IN [facility] [address] [place] [address] END OF REPORT
[2019-09-30 12:25] VITALS: BP 125/75
--- NOTE | 2019-09-30 13:49 | NUR ---
I have reviewed this patient and I concur with the Shift Assessment completed by the Licensed Practical Nurse today this shift.
--- NOTE | 2019-09-30 16:35 | NUR ---
DISHCARGED WITH [facility] STAFF, WITH BELONGINGS
--- NOTE | 2019-09-30 21:03 | NUR ---
OT NOTE: (AM) PT COMPLETED SHOWERING WITH SETUP. PT COMPLETED ADL MOB WITH SPV. PT COMPLETED SIT TO STAND WITH SPV. (PM) PT COMPLETED SUPINE TO SIT WITH SPV. PT COMPLETED TOILETING WITH SPV. PT COMPLETED HYGIENE TASKS WITH SPV. [phone] THANK YOU,JASON RIZO
--- NOTE | 2019-10-02 08:38 | MORECARE ---
CASE MANAGEMENT DISCHARGE SUMMARY PATIENT: WALT DOMINIQUE UNIT: [id number] ADM DATE: 09/17/19 AGE: 33 : 85 SEX: M ROOM/BED: D.2235 AUTHOR: CURT MALIK PHYSICIAN: REFERRING PHYSICIAN: DELANEY FAIRBANKS MD DATE OF SERVICE: 10/02/19 Discharge Plan Patient Name: WALT DOMINIQUE Facility: [facility]:[place] : 1985 Planned Disposition: Halfway Facility Anticipated Discharge Date: Discharge Date: 09/30/2019 Expected LOS: Initial Reviewer: [id number] Initial Review Date: 09/19/2019 Generated: 10/02/19 9:38 am Comments DCP- Discharge Planning Updated by [email or web address]: Selena Vaughn on 09/30/19 9:[address] PATIENT WILL BE DISCHARGING TO [facility] TO A SKILLED BED TODAY VIA THEIR TRANSPORTATION DCP- Discharge Planning Updated by [email or web address]: Hellen Molina on 09/27/19 4:[address] Patient Name: WALT DOMINIQUE Admission Status: ER Accout number: [id number] Admission Date: 09-17-2019 : 1985 Admission Diagnosis:UNSPECIFIED ABDOMINAL PAIN Attending: DELANEY FAIRBANKS Current LOS: 10 Anticipated DC Date: Planned Disposition: Halfway Facility Primary Insurance: [place] [employer] [place] Discharge Planning Comments: RECEIVED CALL FROM [facility]. THEY ARE REVEIWING FINANCIALS AND POSSIBLE PLACEMENT WITH THEM MONDAY. DR. FAIRBANKS IS AWARE. Paper Reel Operator: Hellen Molina DCP- Discharge Planning Updated by [id number]: Selena Vaughn on 09/27/19 9:[address] LM WITH REBECA TO CALL ME BACK ABOUT REFERRAL DCP- Discharge Planning Updated by [email or web address]: Selena Vaughn on 09/26/19 10:[address] UPDATED CLINICALS FAXED TO [facility] ([phone]) HER FAX # IS [phone] DCP- Discharge Planning Updated by [id number]: Selena Vaughn on 09/25/19 2:[address] I SPOKE WITH REBECA JAMES ([phone]) FROM [facility] FAXED REFERRL TO [phone] DCP- Discharge Planning Updated by [id number]: Selena Vaughn on 09/25/19 12:[address] [facility] SAID THAT THEY CAN NOT ACCOMINDATE A PATIENT ON THIS WEIGHT DCP- Discharge Planning Updated by [email or web address]: Selena Vaughn on 09/25/19 12:[address] I HAVE REACHED OUT TO [facility] I HAVE SENT A REFERRAL TO [facility], I AM AWAITING A CALL BACK FROM [facility] DCP- Discharge Planning Updated by [id number]: Hellen Molina on 09/23/19 11:[address] Patient Name: WALT DOMINIQUE Admission Status: ER Accout number: [id number] Admission Date: 09-17-2019 : 1985 Admission Diagnosis:UNSPECIFIED ABDOMINAL PAIN Attending: DELANEY FAIRBANKS Current LOS: 6 Anticipated DC Date: Planned Disposition: Inpatient Rehab Primary Insurance: [place] [employer] [facility] Discharge Planning Comments: FAXED REFERRAL FOR SNF TO [facility]. WAITING CALL BACK. Paper Reel Operator: Hellen Molina DCP- Discharge Planning Updated by [id number]: Selena Vaughn on 09/20/19 4:[address] SPOKE WITH PATIENT ABOUT NOT GETTING ACCEPTED TO INPATIENT REHAB, HE WOULD LIKE TO TRY TO GET INTO A PHYSICAL THERAPY REHAB ( SKILLED) HE DID MENTION THAT HE HAS AN AUNT SAVANNAH MONTGOMERY & UNCLE JING PEPPER WHO LIVE IN [facility]. [phone] HE HAS NOT SPOKEN WITH THEM IN 10 YEARS & DID NOT WANT ME TO CALL THEM. HE WOULD LIKE TO WAIT AND SEE IF WE CAN GET HIM INTO A SKILLED HE WOULD LIKE TO STAY LOCL IF POSSIBLE DCP- Discharge Planning Updated by [email or web address]: Selena Vaughn on 09/20/19 12:[address] NIKKI FROM [facility] STATED THAT THE PATINET DOES NOT HAVE AN APPROVED DX FOR HIS INSURANCE DCP- Discharge Planning Updated by [id number]: Hellen Molina on 09/19/19 11:[address] Patient Name: WALT DOMINIQUE Admission Status: ER Accout number: [id number] Admission Date: 09-17-2019 : 1985 Admission Diagnosis: Attending: DELANEY FAIRBANKS Current LOS: 2 Anticipated DC Date: Planned Disposition: Inpatient Rehab Primary Insurance: [place] [employer] Discharge Planning Comments: CM met with patient at bedside after explaining CM role and obtaining verbal consent. CM discussed availability / needs of home health, REHAB and medical equipment. HE WOULD LIKE TO GO TO [facility], DEENA SIGNED AND I AM FAXING REFERRAL SO THEY CAN GET STARTED ON THE INSURANCE AUTH. I WILL FOLLOW AND ASSIST NEEDED. Paper Reel Operator: Hellen Molina Coverage Notice Reviewer: [id number] - Hellen Molina Notice Issued Date-Time: 09/19/2019 12:35 Notice Type: Patient Choice Letter Notice Delivered To: Relationship to Patient: Feather Stitcher Name: Delivery Method: HAND - Hand Delivered Peggy Days: Prior Verbal Notification: Recipient Understood Notice: Yes Recipient Signature: Yes Med Rec Note Co-signed by Attending: Coverage Notice Comment: [facility] Last DP export: 09/30/19 9:31 a Patient Name: WALT DOMINIQUE Page [id number] at 0838 All edits/amendments must be made on the electronic document DICTATION DATE: 10/02/19837 HAND COPER: DENY 10/02/19837 RPT#: [id number] DC DATE:09/30/19 STATUS: DIS IN [facility] [address] [place] [address] END OF REPORT
== END 2019-09-30 16:35 | DRG 433 ==
LOC: D.ER 16:04 → D.MS 17:44
PROVIDERS: Family Medicine; Internal Medicine Gastroenterology; ADMIT Family Medicine; ATTEND Family Medicine
DX: K70.31 Alcoholic cirrhosis of liver with ascites (principal); Z68.43 Body mass index [BMI] 50.0-59.9, adult; F10.20 Alcohol dependence, uncomplicated; K76.0 Fatty (change of) liver, not elsewhere classified; E66.01 Morbid (severe) obesity due to excess calories; K70.11 Alcoholic hepatitis with ascites; I10 Essential (primary) hypertension; E87.6 Hypokalemia; Z59.0 Homelessness; I89.0 Lymphedema, not elsewhere classified; Z72.0 Tobacco use